=== PATIENT | male | born 1945 | race Caucasian/White ===

== ENCOUNTER 2018-08-17 22:17 | Inpatient (IN) | payer OTHER ==
--- OUTSIDE RECORDS SUMMARY | 2018-08-17 22:21 | XMS REPORT | Clinical Summary ---
:1945 Author Organization [facility] Address [address] [place] [address] Care Team Providers Name Role Phone Pcp, No Primary Care Provider Unavailable Allergies Active Allergy Reactions Severity Noted Date Comments Pollen Extracts 07/21/2018 Sneezing,runny nose Medications Medication Sig Dispensed Refills Start Date End Date Status multivit-mins Take by mouth 0 Active no.63/iron/folic (M-VIT daily. ORAL) biotin 5,000 mcg TbDL Take by mouth. 0 Active psyllium (FIBER-CAPS, Take 0.52 g by 0 Active PSYLLIUM HUSK,) 0.52 mouth daily. gram capsule sodium chloride 0.65% 1 spray by 0 Active (SODIUM CHLORIDE) 0.65 Nasal route % nasal spray nightly. loratadine (CLARITIN) Take 10 mg by 0 Active 10 mg tablet mouth as needed for Allergies. bismuth subsalicylate Take by mouth 0 Active (PEPTO-BISMOL ORAL) as needed. acetaminophen (TYLENOL) Take 500 mg by 0 Active 500 MG tablet mouth every 6 (six) hours as needed for Pain. aspirin 325 MG EC Take 1 tablet 30 tablet 08/02/2018 08/02/2019 Active tablet (325 mg total) by mouth daily. Active Problems Problem Noted Date Primary osteoarthritis of left knee 08/01/2018 Osteoarthritis of left knee, unspecified osteoarthritis type 08/01/2018 Encounters Date Type Specialty Care Team Description 08/03/2018 Telephone Anesthesiology Teresa Varela Follow-up STAR Tapia 08/01/2018 Surgery Erich Tanner MAKOPLASTY,KNEE MD Miguelangel 08/01/2018 Anesthesia Event Jodie Garza NP 08/01/2018 Hospital General Internal Erich Tanner Osteoarthritis of - Encounter Medicine MD Miguelangel left knee, 08/02/2018 unspecified osteoarthritis type (Primary Dx) 08/01/2018 Travel 07/24/2018 Anesthesia Event Pre-Admission Testing Jodie Garza NP 07/21/2018 Hospital Pre-Admission Testing Erich Tanner Encounter MD Miguelangel 07/21/2018 Orders Only General Internal Medicine after 08/16/2017 Social History Tobacco Use Types Packs/Day Years Used Date Former Smoker Smokeless Tobacco: Never Used Comments: quit 1985 Alcohol Use Drinks/Week oz/Week Comments Yes rare Sex Assigned at Date Recorded Not on file Job Start Date Occupation Industry Not on file Not on file Not on file Travel History Travel Start Travel End No recent travel history available. Last Filed Vital Signs Vital Sign Reading Time Taken Blood Pressure 155/70 08/02/2018 1:00 PM CHEMICAL PROCESS OPERATOR Pulse 67 08/02/2018 1:00 PM CHEMICAL PROCESS OPERATOR Temperature 36.6 C (97.8 F) 08/02/2018 1:00 PM CHEMICAL PROCESS OPERATOR Respiratory Rate 18 08/02/2018 1:00 PM CHEMICAL PROCESS OPERATOR Oxygen Saturation 98% 08/02/2018 1:00 PM CHEMICAL PROCESS OPERATOR Inhaled Oxygen Concentration - - Weight 78.5 kg (173 lb 1 oz) 08/01/2018 5:53 AM CHEMICAL PROCESS OPERATOR Height 170.2 cm (5' 7") 08/01/2018 5:53 AM CHEMICAL PROCESS OPERATOR Body Mass Index 27.11 08/01/2018 5:53 AM CHEMICAL PROCESS OPERATOR Plan of Treatment Not on file Implants Implanted Type Area Cut Off Sawyer Log Device Shelf Model / Identifier Expiration Serial / Date Lot Cement Bone Smplx Hv 6194-1-001 - [id number] Cement/Adi Left: MONICA: MONICA 02/08/2020 [id number] / Implanted: Qty: 2 on 08/01/2018 by Erich Tanner MD ler/Adhesi Knee ORTHOPAEDICS / ve [id number] Insrt Tib #5 9mm 5530-G-509 - [id number] Joints Left: MONICA:MONICA 5530-G-509 / Implanted: Qty: 1 on 08/01/2018 by Erich Tanner MD Knee ORTHOPAEDICS / [id number] Baseplt Triathlon Ts Sz5 5521-B-500 - [id number] Joints Left: MONICA: MONICA 06/16/2023 5521-B-[id number] / Implanted: Qty: 1 on 08/01/2018 by Erich Tanner MD Knee ORTHOPAEDICS / [id number] Comp Fem Cr Barry No.5 L 5510-F-501 - [id number] Joints Left: MONICA:MONICA 01/10/2023 5510-F-[id number] / Implanted: Qty: 1 on 08/01/2018 by Erich Tanner MD Knee ORTHOPAEDICS / [id number] Patella Tri Asymmetric 29x9mm 5551-L-299 - [id number] Joints Left: MONICA: MONICA 11/20/2022 5551-L-[id number] / Implanted: Qty: 1 on 08/01/2018 by Erich Tanner MD Knee ORTHOPAEDICS / [id number] Explanted Type Area Cut Off Sawyer Log Device Shelf Model / Identifier Expiration Serial / Date Lot Checkpoint Femoral Strl [id number] - [id number] IMPLANTS Left: MONICA:MONICA [id number] / Explanted: Qty: 1 on 08/01/2018 by Erich Tanner MD Knee [employer] / Pin Bone [id number] Strl [id number] - [id number] IMPLANTS Left: MONICA:MONICA [id number] / Explanted: Qty: 1 on 08/01/2018 Knee [employer] / Procedures Procedure Name Priority Date/Time Associated Diagnosis Comments TRANSFUSION SERVICE 08/02/2018 5:51 REPORT - SCAN PM CHEMICAL PROCESS OPERATOR HEMOGLOBIN AND Routine 08/02/2018 4:14 Results for this HEMATOCRIT AM CHEMICAL PROCESS OPERATOR procedure are in the results section. BASIC METABOLIC Routine 08/02/2018 4:14 Results for this PANEL (7) AM CHEMICAL PROCESS OPERATOR procedure are in the results section. POCT-GLUCOSE METER Routine 08/01/2018 6:17 Results for this PM CHEMICAL PROCESS OPERATOR procedure are in the results section. XR KNEE LEFT 1 OR 2 STAT 08/01/2018 11:24 Results for this VIEWS AM CHEMICAL PROCESS OPERATOR procedure are in the results section. TISSUE EXAM AP Routine 08/01/2018 9:45 Results for this AM CHEMICAL PROCESS OPERATOR procedure are in the results section. PROCEDURE W/ ATTILA 08/01/2018 7:00 Primary osteoarthritis ROBOT AM CHEMICAL PROCESS OPERATOR of left knee Case Notes Need pre cert Special Needs (ATTILA) MAKOPLASTY,KNEE 08/01/2018 7:00 AM CHEMICAL PROCESS OPERATOR Primary osteoarthritis of left knee Case Notes Need pre cert Special Needs (ATTILA) UT AN PERINEURAL CATH - NO Routine 08/01/2018 6:43 AM CHEMICAL PROCESS OPERATOR Results for this CHARGE procedure are in the results section. ANESTHESIA SPINAL BLOCK Routine 08/01/2018 6:37 AM CHEMICAL PROCESS OPERATOR ABORH, MANUAL STAT 08/01/2018 6:11 AM CHEMICAL PROCESS OPERATOR TRANSFUSION SERVICE REPORT 07/22/2018 6:04 PM CHEMICAL PROCESS OPERATOR - SCAN ECG 12-LEAD Routine 07/21/2018 3:10 PM CHEMICAL PROCESS OPERATOR Procedure Note - Interface, External Ris In - 07/21/2018 5:40 PM CHEMICAL PROCESS OPERATOR Ventricular Rate 67 BPM Atrial Rate 67 BPM P-R Interval 222 ms QRS Duration 90 ms Q-T Interval 434 ms QTC Calculation(Bazett) 458 ms P [place] 22 degrees R [place] -39 degrees T [place] -10 degrees Sinus rhythm with 1st degree A-V block Left axis deviation Abnormal ECG No previous ECGs available ECG 12-LEAD Routine 07/21/2018 3:10 PM CHEMICAL PROCESS OPERATOR TYPE AND SCREEN, AUTOMATED Routine 07/21/2018 3:03 PM CHEMICAL PROCESS OPERATOR HEMOGLOBIN Routine 07/21/2018 3:03 PM CHEMICAL PROCESS OPERATOR PLATELET COUNT Routine 07/21/2018 3:03 PM CHEMICAL PROCESS OPERATOR ELECTROLYTE PANEL Routine 07/21/2018 3:03 PM CHEMICAL PROCESS OPERATOR BUN AND CREATININE Routine 07/21/2018 3:03 PM CHEMICAL PROCESS OPERATOR GLUCOSE Routine 07/21/2018 3:03 PM CHEMICAL PROCESS OPERATOR after 08/16/2017 Results TRANSFUSION SERVICE REPORT - SCAN (08/02/2018 5:51 PM CHEMICAL PROCESS OPERATOR)Only the most recent of2 resultswithin the time period is included. Narrative Performed At Hemoglobin and hematocrit (08/02/2018 4:14 AM CHEMICAL PROCESS OPERATOR) Hemoglobin 10.6 (L) 13.7 - 17.5 GM/DL [facility] Hematocrit 31.7 (L) 40.1 - 51.0 % [facility] Specimen Blood - Arm, Right Performing Organization Address City/[facility]/Zipcode Phone Number [address] [address] [place] Basic metabolic panel (08/02/2018 4:14 AM CHEMICAL PROCESS OPERATOR) Sodium 136 136 - 145 meq/L [facility] Potassium 4.4 3.5 - 5.1 meq/L [facility] Chloride 105 98 - 107 meq/L [facility] CO2 28 22 - 29 meq/L [facility] BUN 17 7 - 21 mg/dL [facility] Creatinine 0.76 0.57 - 1.25 mg/dL [facility] Glucose 89 70 - 105 mg/dL [facility] Calcium 8.0 (L) 8.4 - 10.2 mg/dL [facility] EGFR 100Comment: ESTIMATED GFR IS mL/min/1.73 sq m [facility] NOT ACCURATE CREATININE [facility] CLEARANCE IN PREDICTING GLOMERULAR FILTRATION RATE. ESTIMATED GFR IS NOT APPLICABLE FOR DIALYSIS PATIENTS. Specimen Blood - Arm, Right Narrative Performed At Specimen slightly icteric [facility] Performing Organization Address [facility] Phone Number [address] [address] [phone] [place] POC-Glucose meter (08/01/2018 6:17 PM CHEMICAL PROCESS OPERATOR) POC-Glucose Meter 88Comment: TESTED AT 70 - 110 mg/dL [address] [address] Specimen Blood Performing Organization Address [facility]/Zipcode Phone Number [address] [address] [place] XR knee 1 or 2 views left (08/01/2018 11:24 AM CHEMICAL PROCESS OPERATOR) Narrative Performed At FINAL REPORT [facility] Post operative exam: Clinical history: Postop total knee replacement Comparison: Two Two image(s) was(were) submitted for interpretation. Report: Imaging was performed in the postanesthesia care unit. Laterality was documented on this exam with a lead marker. Surgical hardware is seen overlying the distal left femur and proximal left tibia. This information was not discussed with the OR personnel at the time of dictation. Signed: Nelly Suazo MD Report Verified Date/Time:08/01/2018 11:42:28 Reading Location: [facility] Radiology Reading Room Procedure Note Interface, External Ris In - 08/01/2018 11:44 AM CHEMICAL PROCESS OPERATOR FINAL REPORT Post operative exam: Clinical history: Postop total knee replacement Comparison: Two Two image(s) was(were) submitted for interpretation. Report: Imaging was performed in the postanesthesia care unit. Laterality was documented on this exam with a lead marker. Surgical hardware is seen overlying the distal left femur and proximal left tibia. This information was not discussed with the OR personnel at the time of dictation. Signed: Nelly Suazo MD Report Verified Date/Time: 08/01/2018 11:42:28 Reading Location: [facility] Radiology Reading Room Performing Organization Address City/State/Zipcode Phone Number GE RIS Tissue Exam (08/01/2018 9:45 AM CHEMICAL PROCESS OPERATOR) Case Report Surgical Pathology Report Case: [id number] [facility] Authorizing Provider:Erich Tanner MDCollected: 08/01/2018 0945 [facility] Ordering Location: [facility] PERIOPERATIVE Received: 08/01/2018 0957 SERVICES Pathologist: Selina Correa MD Specimen:Condyle,Left Knee DIAGNOSIS BONE, LEFT KNEE CONDYLE, ARTHROPLASTY [facility] - CONSISTENT WITH OSTEOARTHRITIS [facility] Signing Pathologist Direct Phone Line: [phone] CPT Code(s) 30987, 9[address]23 [facility] CLINICAL HISTORY Primary osteoarthritis of [facility] left knee [facility] SPECIMEN SOURCE Left knee condyle [facility] GROSS DESCRIPTION The specimen is received in a fluidless container labeled with the patient's information and labeled "left knee condyle" and consists of multiple fragments of nicole knee bone and soft tissue measuring 9 x [facility] 7 x 2 cm in aggregate. The bone fragments have distinct osteophyte formation with focal areas of eburnation. [facility] Section code: A1, A2, bone submitted for decalcification; A3, soft tissue and bone submitted for decalcification. CG/ew MICROSCOPIC DESCRIPTION Performed. [facility] Specimen Tissue - Condyle,Left Knee Performing Organization Address City/State/Zipcode Phone Number [facility] [address] [place] [address] [phone] CENTER ANESTHESIA PERIPHERAL BLOCK (08/01/2018 6:43 AM CHEMICAL PROCESS OPERATOR) Narrative Performed At Rajendra Vega MD 08/01/20186:44 AM Peripheral Block Patient location during procedure: pre-procedure Start time: 08/01/2018 6:38 AM End time: 08/01/2018 6:42 AM Preanesthetic Checklist Completed: patient identified, pre-op evaluation, timeout performed, IV checked, risks and benefits discussed, monitors and equipment checked, anesthesia consent given, prep site dry prior to draping and maximum sterile barriers were used: cap, mask, sterile gown, sterile gloves, and large sterile sheet Staffing Anesthesiologist: Rajendra Vega MD Resident/RECREATION THERAPIST: Denise Rodriguez MD Prep Prep: chlorhexidine Procedures: sterile gloves, surgical mask, surgical hat, sterile technique and prep and sterile drape applied Peripheral Nerve Block Patient position: supine Patient monitoring: EKG, HR, BP and SpO2 Laterality: left Block type: adductor canal Injection technique: catheter ultrasound guided - in plane, prescan was completed prior to procedure and needle tip was visualized throughout the entire procedure Block Dose: ropivicaine and catheter Infiltration strength: 0.5 % Dose: 25 mL Needle Needle type: xochilt nazario. Needle gauge: 18 G Needle length: 75 mm. Needle Localization:US guided Catheter type: closed end Catheter size: 21g. Hydrodissection? yesCatheter tunneled Dressing: Occlusive dressing applied in sterile fashion and Dermabond applied at the catheter insertion site Assessment Injection assessment: incremental injection and negative aspiration for heme LOC: Sedated with meaningful contact supplemental oxygen used.no evidence of intravascular injection and no heart rate changeno paresthesia patient had no immediate complications and patient tolerated the procedure well Additional Notes Patient tolerated procedure well. No complications. Dr. Vega present for entire procedure. Procedure Note Rajendra Vega MD - 08/01/2018 6:43 AM CHEMICAL PROCESS OPERATOR Peripheral Block Patient location during procedure: pre-procedure Start time: 08/01/2018 6:38 AM End time: 08/01/2018 6:42 AM Preanesthetic Checklist Completed: patient identified, pre-op evaluation, timeout performed, IV checked , risks and benefits discussed, monitors and equipment checked, anesthesia consent given, prep site dry prior to draping and maximum sterile barriers were used: cap, mask, sterile gown, sterile gloves, and large sterile sheet Staffing Anesthesiologist: Rajendra Vega MD Resident/RECREATION THERAPIST: Denise Rodriguez MD Prep Prep: chlorhexidine Procedures: sterile gloves, surgical mask, surgical hat, sterile technique and prep and sterile drape applied Peripheral Nerve Block Patient position: supine Patient monitoring: EKG, HR, BP and SpO2 Laterality: left Block type: adductor canal Injection technique: catheter ultrasound guided - in plane, prescan was completed prior to procedure and needle tip was visualized throughout the entire procedure Block Dose: ropivicaine and catheter Infiltration strength: 0.5 % Dose: 25 mL Needle Needle type: pajunk e cath. Needle gauge: 18 G Needle length: 75 mm. Needle Localization: US guided Catheter type: closed end Catheter size: 21g. Hydrodissection? yesCatheter tunneled Dressing: Occlusive dressing applied in sterile fashion and Dermabond applied at the catheter insertion site Assessment Injection assessment: incremental injection and negative aspiration for heme LOC: Sedated with meaningful contact supplemental oxygen used.no evidence of intravascular injection and no heart rate changeno paresthesia patient had no immediate complications and patient tolerated the procedure well Additional Notes Patient tolerated procedure well. No complications. Dr. Vega present for entire procedure. ANESTHESIA SPINAL BLOCK (08/01/2018 6:37 AM CHEMICAL PROCESS OPERATOR) Narrative Performed At Rajendra Vega MD 08/01/20186:39 AM Spinal Block Patient location during procedure: pre-procedure Start time: 08/01/2018 6:32 AM End time: 08/01/2018 6:36 AM Procedure Indication: procedure for pain, at surgeon's request and post-op pain management Staffing Anesthesiologist: Rajendra Vega MD Performed: personally Preanesthetic Checklist Completed: patient identified, pre-op evaluation, timeout performed, IV checked, risks and benefits discussed, monitors and equipment checked, anesthesia consent given, prep site dry prior to draping and maximum sterile barriers were used: cap, mask, sterile gown, sterile gloves, and large sterile sheet Prep Prep: Betadine Procedures: sterile gloves, surgical mask, surgical hat, sterile technique and prep and sterile drape applied Spinal Block Patient position: sitting Patient monitoring: EKG, HR, BP and SpO2 Approach: midline Pictures are available Level:L3-4 Injection technique: single-shot Needle Needle type: bernie. Needle gauge: 25 G Needle Length: 9 cm Insertion Depth: 4 cm Used introducer Assessment Sensory level: T10 Events: cerebrospinal fluid patient tolerated the procedure well, patient had no immediate complications and patient had adequate level of anesthesia and negative Allis clamp test Additional Notes Patient tolerated well.No pain on injection or throughout procedure. Procedure Note Rajendra Vega MD - 08/01/2018 6:37 AM CHEMICAL PROCESS OPERATOR Spinal Block Patient location during procedure: pre-procedure Start time: 08/01/2018 6:32 AM End time: 08/01/2018 6:36 AM Procedure Indication: procedure for pain, at surgeon's request and post-op pain management Staffing Anesthesiologist: Rajendra Vega MD Performed: personally Preanesthetic Checklist Completed: patient identified, pre-op evaluation, timeout performed, IV checked , risks and benefits discussed, monitors and equipment checked, anesthesia consent given, prep site dry prior to draping and maximum sterile barriers were used: cap, mask, sterile gown, sterile gloves, and large sterile sheet Prep Prep: Betadine Procedures: sterile gloves, surgical mask, surgical hat, sterile technique and prep and sterile drape applied Spinal Block Patient position: sitting Patient monitoring: EKG, HR, BP and SpO2 Approach: midline Pictures are available Level: L3-4 Injection technique: single-shot Needle Needle type: bernie. Needle gauge: 25 G Needle Length: 9 cm Insertion Depth: 4 cm Used introducer Assessment Sensory level: T10 Events: cerebrospinal fluid patient tolerated the procedure well, patient had no immediate complications and patient had adequate level of anesthesia and negative Allis clamp test Additional Notes Patient tolerated well. No pain on injection or throughout procedure. ABORH, manual (08/01/2018 6:11 AM CHEMICAL PROCESS OPERATOR) ABO Grouping O [facility] Rh Factor POS [facility] Specimen Blood Performing Organization Address City/[facility]code Phone Number [address] [address] [phone] ECG 12 lead (07/21/2018 3:10 PM CHEMICAL PROCESS OPERATOR) Narrative Performed At Ventricular Rate 67 BPM GE MUSE Atrial Rate 67 BPM P-R Interval 222 ms QRS Duration 90 ms Q-T Interval 434 ms QTC Calculation(Bazett) 458 ms P [place] 22 degrees R [place] -39 degrees T [place] -10 degrees Sinus rhythm with 1st degree A-V block Left axis deviation Abnormal ECG No previous ECGs available Confirmed by Kendall ISAACS, SRIRAM ([id number]) on 07/22/2018 12:15:54 PM Procedure Note Interface, External Ris In - 07/22/2018 12:16 PM CHEMICAL PROCESS OPERATOR Ventricular Rate 67 BPM Atrial Rate 67 BPM P-R Interval 222 ms QRS Duration 90 ms Q-T Interval 434 ms QTC Calculation(Bazett) 458 ms P [place] 22 degrees R [place] -39 degrees T [place] -10 degrees Sinus rhythm with 1st degree A-V block Left axis deviation Abnormal ECG No previous ECGs available Confirmed by Kendall ISAACS BASANT ([id number]) on 07/22/2018 12:15:54 PM Performing Organization Address City/[facility] Phone Number GE MUSE Type and screen, automated (07/21/2018 3:03 PM CHEMICAL PROCESS OPERATOR) ABO/RH AUTOMATED (BEAKER) O POSITIVE [facility] Ab Scrn NEGATIVE [facility] Specimen Blood Performing Organization Address City/[facility]/Zipcode Phone Number [address] [address] BUN and Creatinine (07/21/2018 3:03 PM CHEMICAL PROCESS OPERATOR) BUN 15 7 - 21 mg/dL [facility] Creatinine 0.71Comment: Specimen 0.57 - 1.25 mg/dL [facility] slightly hemolyzed [facility] EGFR 108Comment: ESTIMATED GFR IS mL/min/1.73 sq m [facility] NOT ACCURATE CREATININE [facility] CLEARANCE IN PREDICTING GLOMERULAR FILTRATION RATE. ESTIMATED GFR IS NOT APPLICABLE FOR DIALYSIS PATIENTS. Specimen Blood Performing Organization Address City/[facility] Phone Number [address] [address] [phone] CENTER Platelet count (07/21/2018 3:03 PM CHEMICAL PROCESS OPERATOR) Platelets 150 150 - 450 K/CU MM [facility] Specimen Blood Performing Organization Address [facility] Phone Number [address] [address] [phone] CENTER Hemoglobin (07/21/2018 3:03 PM CHEMICAL PROCESS OPERATOR) Hemoglobin 12.1 (L) 13.7 - 17.5 GM/DL [facility] Specimen Blood Performing Organization Address City/[facility] Phone Number [address] [address] CENTER Glucose (07/21/2018 3:03 PM CHEMICAL PROCESS OPERATOR) Glucose 117 (H) 70 - 105 mg/dL [facility] Specimen Blood Performing Organization Address [facility] Phone Number [address] [address] CENTER Electrolytes (07/21/2018 3:03 PM CHEMICAL PROCESS OPERATOR) Sodium 139 136 - 145 meq/L [facility] Potassium 4.2Comment: Specimen slightly 3.5 - 5.1 meq/L [facility] Chloride 107 98 - 107 meq/L [facility] CO2 26 22 - 29 meq/L [facility] Specimen Blood Performing Organization Address City/[facility]/Zipcode Phone Number [facility] MED[facility] [address] [place] [address] CENTER after 08/16/2017 Insurance Payer Benefit Plan / Group Subscriber ID Type Phone Address [employer] - MEDICARE MGD [employer] MEDICARE ADV xxxxxxxxx Maps Contracted CARE Advance Directives Patient has advance care planning documents, and code status on file. For more information, please contact:[place] [id number] [place], [place] [phone] Code Status Date Activated Date Inactivated Comments Full Code 08/01/2018 12:25 PM This code status was determined by: Patient Full Code 08/01/2018 5:03 AM 08/01/2018 12:25 PM This code status was determined by: Patient
--- OUTSIDE RECORDS SUMMARY | 2018-08-17 22:21 | XMS REPORT ---
:1945 Author Organization [facility] Address [address] [place] [address] [address]. [address] [place] [address] Care Team Providers Name Role Phone EDUARDA TANNER Unavailable Unavailable Problems This patient has no known problems. Allergies, Adverse Reactions, Alerts This patient has no known allergies or adverse reactions. Medications This patient has no known medications. Results Test Description Test Time Test Comments Text Results Atomic Results Result Comments TISSUE EXAM 2018-08-04 16:07:00 Surgical Pathology Report Case: [id number] Authorizing Provider: Eduarda Tanner MD Collected: 08/01/2018 0945 Ordering Location: [facility] PERIOPERATIVE Received: 08/01/2018 0957 SERVICES Pathologist: Selina Correa MD Specimen: Condyle,Left Knee BONE, LEFT KNEE CONDYLE, ARTHROPLASTY - CONSISTENT WITH OSTEOARTHRITIS Signing Pathologist Direct Phone Line: [phone] signed by Selina Correa MD on 08/04/2018 at 4:07 [id number], [id number] osteoarthritis of left knee Left knee condyle The specimen is received in a fluidless container labeled with the patient's information and labeled "left knee condyle" and consists of multiple fragments of nicole knee bone and soft tissue measuring 9 x 7 x 2 cm in aggregate. The bone fragments have distinct osteophyte formation with focal areas of eburnation.Section code: A1, A2, bone submitted for decalcification; A3, soft tissue and bone submitted for decalcification. CG/ew Performed. BASIC METABOLIC PANEL 2018-08-02 05:39:00 Test Item Value Reference Range Comments SODIUM (BEAKER) (test 136 meq/L 136-145 dcut=424) POTASSIUM (BEAKER) (test 4.4 meq/L 3.5-5.1 fphf=953) CHLORIDE (BEAKER) (test 105 meq/L 98-107 aioo=466) CO2 (BEAKER) (test 28 meq/L 22-29 suab=012) BLOOD UREA NITROGEN 17 mg/dL 7-21 (BEAKER) (test ocsd=759) CREATININE (BEAKER) (test 0.76 mg/dL 0.57-1.25 nsfp=478) GLUCOSE RANDOM (BEAKER) 89 mg/dL 70-105 (test tbpx=093) CALCIUM (BEAKER) (test 8.0 mg/dL 8.4-10.2 jgpj=529) EGFR (BEAKER) (test 100 mL/min/1.73 sq m ESTIMATED GFR IS NOT ietj=2072) ACCURATE CREATININE CLEARANCE IN PREDICTING GLOMERULAR FILTRATION RATE. ESTIMATED GFR IS NOT APPLICABLE FOR DIALYSIS PATIENTS. Specimen slightly ictericHEMOGLOBIN AND [id number] 05:15:00 Test Item Value Reference Range Comments HEMOGLOBIN (BEAKER) (test hyef=383) 10.6 GM/DL 13.7-17.5 HEMATOCRIT (BEAKER) (test gohk=252) 31.7 % 40.1-51.0 POCT-GLUCOSE [id number] 18:24:00 Test Item Value Reference Range Comments POC-GLUCOSE METER (BEAKER) 88 mg/dL 70-[address] [facility] [address] [facility] (test lrfz=6098) [facility] [address] RAD, KNEE, 1 OR 2 VIEWS, [id number] 11:42:00Of operative side while in recovery room.Reason for exam:->post-op TKA, to be done in PACUShould this be performed at the bedside?->YesFINAL REPORT Post operative exam: Clinical history: Postop total knee replacementComparison: Two Two image(s) was(were) submitted for interpretation. Report:Imaging was performedin the postanesthesia care unit. Laterality was documented on this exam with a lead marker. Surgical hardware is seen overlying the distal left femur and proximal left tibia. This information was not discussed with the OR personnel at the time of dictation. Signed: Marjorie Suazo Verified Date/ Time: 08/01/2018 11:42:28 Reading Location: [facility] [address] Radiology Reading Room [id number] 16:37:00 Test Item Value Reference Range Comments SODIUM (BEAKER) (test canz=223) 139 meq/L 136-145 POTASSIUM (BEAKER) (test 4.2 meq/L 3.5-5.1 Specimen slightly hemolyzed qvrf=506) CHLORIDE (BEAKER) (test 107 meq/L 98-107 ilwq=384) CO2 (BEAKER) (test ohme=599) 26 meq/L 22-29 [id number] 16:37:00 Test Item Value Reference Range Comments GLUCOSE RANDOM (BEAKER) (test wawg=731) 117 mg/dL 70-105 BUN AND [id number] 16:37:00 Test Item Value Reference Range Comments BLOOD UREA NITROGEN 15 mg/dL 7-21 (BEAKER) (test kiaw=747) CREATININE (BEAKER) (test 0.71 mg/dL 0.57-1.25 Specimen slightly ucmn=575) hemolyzed EGFR (BEAKER) (test 108 mL/min/1.73 sq m ESTIMATED GFR IS NOT ablo=8995) ACCURATE CREATININE CLEARANCE IN PREDICTING GLOMERULAR FILTRATION RATE. ESTIMATED GFR IS NOT APPLICABLE FOR DIALYSIS PATIENTS. [id number] 16:07:00 Test Item Value Reference Range Comments HEMOGLOBIN (BEAKER) (test zgrk=441) 12.1 GM/DL 13.7-17.5 PLATELET [id number] 16:07:00 Test Item Value Reference Range Comments PLATELET COUNT (BEAKER) (test wbpi=904) 150 K/CU MM 150-450
--- NOTE | 2018-08-17 23:14 | ER ---
Nurse's Notes [facility] Name: Marcin Luu Age: 73 yrs Sex: Male : 1945 Arrival Date: 08/17/2018 Time: 22:26 Bed 4 Private MD: Carli Oropeza F Diagnosis: Abdominal tenderness;Gastrointestinal hemorrhage, unspecified-upper;Anemia, unspecified;Hematemesis;Elevated white blood cell count;Unspecified cirrhosis of liver-MCLAUGHLIN;Hyperkalemia Presentation: 08/17 22:44 Presenting complaint: Patient states: he has had black stools x approx [address] gonzales Elliott today for fatigue and had blood work done but no results yet pt had recent knee replacement in July. Transition of care: patient was not received from another setting of care. Onset of symptoms was August 06, 2018. Risk Assessment: Do you want to hurt yourself or someone else? Patient reports no desire to harm self or others. Initial Sepsis Screen: Does the patient meet any 2 criteria? No. Patient's initial sepsis screen is negative. Does the patient have a suspected source of infection? No. Patient's initial sepsis screen is negative. Care prior to arrival: None. 22:44 Method Of Arrival: Wheelchair bb 22:44 Acuity: SHERWIN 2 bb Historical: - Allergies: 22:48 NKA; bb - Home Meds: 22:48 None [Active]; bb - PMHx: 22:48 LYMPHOMA; esophageal cancer; skin cancer; prostate cancer; bb - PSHx: 22:48 Appendectomy; bb - Immunization history:: Adult Immunizations up to date, Flu vaccine is up to date. - Social history:: Smoking status: Patient/guardian denies using tobacco, Patient uses alcohol, but reports only rare drinking. - Ebola Screening: : No symptoms or risks identified at this time. Screenin/08 00:38 Abuse screen: Denies threats or abuse. Nutritional screening: No deficits noted. jd3 Tuberculosis screening: No symptoms or risk factors identified. Fall Risk IV access (20 points). Ambulatory Aid- Crutches/Cane/Walker (15 pts). Gait- Weak (10 pts.). Mental Status- Oriented to own ability (0 pts). Total Rios Fall Scale indicates High Risk Score (45 or more points). Fall prevention measures have been instituted. Side Rails Up X 2 Placed Close to Nursing Station Frequent Obs/Assessments Occuring Family Present and informed to notify staff if the need to leave the bedside. Assessment: 08/17 23:17 General: Appears in no apparent distress. uncomfortable, Behavior is calm, cooperative, jd3 appropriate for age. Pain: Complains of pain in abdomen Quality of pain is described as aching. Neuro: Level of Consciousness is awake, alert, obeys commands, Oriented to person, place, time, situation. Cardiovascular: Capillary refill < 3 seconds Patient's skin is warm and dry. Respiratory: Airway is patent Respiratory effort is even, unlabored, Respiratory pattern is regular, symmetrical. GI: Abdomen is round Abd is soft and non tender X 4 quads. Reports lower abdominal pain. : No signs and/or symptoms were reported regarding the genitourinary system. EENT: No signs and/or symptoms were reported regarding the EENT system. Derm: Skin is intact, Skin is dry, Skin is normal, Skin temperature is warm. Musculoskeletal: Circulation, motion, and sensation intact. 08/18 00:35 Reassessment: Patient appears in no apparent distress at this time. No changes from jd3 previously documented assessment. Patient and/or family updated on plan of care and expected duration. Pain level reassessed. Patient is alert, oriented x 3, equal unlabored respirations, skin warm/dry/pink. 01:25 Reassessment: blood transfusion started, see blood transfusion flow sheet. jd3 01:30 Reassessment: Patient appears in no apparent distress at this time. No changes from jd3 previously documented assessment. Patient and/or family updated on plan of care and expected duration. Pain level reassessed. Patient is alert, oriented x 3, equal unlabored respirations, skin warm/dry/pink. 02:19 Reassessment: Patient appears in no apparent distress at this time. No changes from jd3 previously documented assessment. Patient and/or family updated on plan of care and expected duration. Pain level reassessed. Patient is alert, oriented x 3, equal unlabored respirations, skin warm/dry/pink. Vital Signs: 08/17 22:48 BP 92 / 55; Pulse 108; Resp 16 S; Temp 98.4(O); Pulse Ox 99% on R/A; Weight 79.38 kg bb (R); Height 5 ft. 7 in. (170.18 cm) (R); Pain 5/10; 08 00:34 BP 100 / 49; Pulse 96; Resp 17 S; Pulse Ox 99% on R/A; jd3 01:25 BP 95 / 55; Pulse 104; Resp 20 S; Temp 98.4(O); Pulse Ox 100% on R/A; jd3 02:21 BP 105 / 58; Pulse 95; Resp 14 S; Temp 99.3(O); Pulse Ox 97% on R/A; jd3 08/17 22:48 Body Mass Index 27.41 (79.38 kg, 170.18 cm) bb ED Course: 08/17 22:26 Patient arrived in ED. am2 22:26 Carli Oropeza MD is Private Physician. am2 22:46 Triage completed. bb 22:48 Arm band placed on Patient placed in an exam room, on a stretcher, on pulse oximetry. bb Family accompanied patient. 22:56 Phil Perdomo MD is Attending Physician. rolando 23:13 Carli Oropeza MD is Hospitalizing Provider. rolando 23:15 No provider procedures requiring assistance completed. Inserted saline lock: 20 gauge jd3 in left antecubital area, using aseptic technique. Blood collected. 23:17 Robert Shankar RN is Primary Nurse. j 23:24 X-ray completed. Portable x-ray completed in exam room. Patient tolerated procedure kw well. 23:26 XRAY Chest (1 view) In Process Unspecified. EDMS 08/18 00:38 Patient has correct armband on for positive identification. Placed in gown. Bed in low jd3 position. Call light in reach. Side rails up X2. Adult w/ patient. 01:20 Accessed Port-a-Cath. using accessed w/ # 20 Singh needle, ,sterile technique, per [facility] protocol. Clean \T\ dry. Dressing intact. Good blood return. Flushes easily. 02:26 Patient admitted, IV remains in place. jd3 Administered Medications: 00:26 Drug: NS 0.9% 500 ml Route: IV; Rate: bolus; Site: left antecubital; jd3 00:59 Follow up: Response: No adverse reaction; IV Status: Completed infusion jd3 00:26 Drug: NS 0.9% 1000 ml Route: IV; Rate: 125 ml/hr; Site: left antecubital; jd3 03:05 Follow up: Response: No adverse reaction; IV Status: Infusion continued upon admission jd3 00:26 Drug: ProTONIX 80 mg Route: IVP; Site: left antecubital; jd3 00:59 Follow up: Response: No adverse reaction jd3 00:26 Drug: Zofran 4 mg Route: IVP; Site: left antecubital; jd3 00:59 Follow up: Response: No adverse reaction jd3 00:27 Drug: ProTONIX 8 mg/hr Route: IV; Rate: 25 ml/hr; Site: left antecubital; jd3 02:50 Follow up: Response: No adverse reaction; IV Status: Infusion continued upon admission jd3 00:58 Drug: Benadryl 12.5 mg Route: IVP; Site: left antecubital; jd3 01:50 Follow up: Response: No adverse reaction jd3 00:58 Drug: Tylenol 650 mg Route: PO; jd3 01:50 Follow up: Response: No adverse reaction jd3 02:15 Drug: Albuterol 2.5 mg Route: Inhalation; jd3 02:50 Follow up: Response: No adverse reaction jd3 Outcome: 08/17 23:14 Decision to Hospitalize by Provider. rolando 08/18 02:50 Admitted to ICU accompanied by nurse, accompanied by mary, via stretcher, room 08, on jd3 monitor, with chart, Report called to Casi GRAVES Condition: stable Instructed on the need for admit, Demonstrated understanding of instructions. 02:54 Patient left the ED. ea Signatures: Dispatcher [employer] EDSD Phil Perdomo MD MD cha Ballard, Brenda, RN RN Taisha Smith Amanda am2 Marcelle Sims RN RN ea Davies, Jonathon, RN RN jd3 Corrections: (The following items were deleted from the chart) 02:25 08/17 23:17 GI: Abdomen is round Abd is soft and non tender X 4 quads. Reports lower jd3 abdominal pain, jd3 08/18 02:26 02 23:17 GI: Abdomen is round Bowel sounds present X 4 quads. Abd is soft and non jd3 tender X 4 quads. Reports lower abdominal pain, jd3
--- NOTE | 2018-08-17 23:15 | EDPHYS ---
Physician Documentation [facility] Name: Marcin Luu Age: 73 yrs Sex: Male : 1945 Arrival Date: 08/17/2018 Time: 22:26 Bed 4 Private MD: Carli Oropeza F ED Physician Phil Perdomo HPI: 08/17 23:08 This 73 yrs old Male presents to ER via Wheelchair with complaints of rolando Abdominal Pain, Black/Tarry Stools, Vomiting - blood. 23:08 The patient presents to the emergency department with nausea, vomiting, that is rolando intermittent. Onset: The symptoms/episode began/occurred today. Possible causes: upper gi bleed. The symptoms are aggravated by nothing. The symptoms are alleviated by nothing. Associated signs and symptoms: Pertinent positives: belching, GI bleeding, nausea, vomiting. Severity of symptoms: At their worst the symptoms were mild moderate in the emergency department the symptoms are unchanged. The patient has not experienced similar symptoms in the past. Historical: - Allergies: 22:48 NKA; bb - Home Meds: 22:48 None [Active]; bb - PMHx: 22:48 LYMPHOMA; esophageal cancer; skin cancer; prostate cancer; bb - PSHx: 22:48 Appendectomy; bb - Immunization history:: Adult Immunizations up to date, Flu vaccine is up to date. - Social history:: Smoking status: Patient/guardian denies using tobacco, Patient uses alcohol, but reports only rare drinking. - Ebola Screening: : No symptoms or risks identified at this time. ROS: 23:10 Constitutional: Negative for fever, chills, and weight loss, Eyes: Negative for injury, rolando pain, redness, and discharge, ENT: Negative for injury, pain, and discharge, Neck: Negative for injury, pain, and swelling, Respiratory: Negative for shortness of breath, cough, wheezing, and pleuritic chest pain, Abdomen/GI: Negative for abdominal pain, nausea, vomiting, diarrhea, and constipation, Back: Negative for injury and pain, : Negative for injury, bleeding, discharge, and swelling, MS/Extremity: Negative for injury and deformity, Skin: Negative for injury, rash, and discoloration, Neuro: Negative for headache, weakness, numbness, tingling, and seizure. 23:10 Cardiovascular: Positive for palpitations. 23:10 Abdomen/GI: Positive for nausea and vomiting, abdominal distension, hematemesis, black/tarry stool. Exam: 23:10 Constitutional: This is a well developed, well nourished patient who is awake, alert, rolando and in no acute distress. Head/Face: Normocephalic, atraumatic. Eyes: Pupils equal round and reactive to light, extra-ocular motions intact. Lids and lashes normal. Conjunctiva and sclera are non-icteric and not injected. Cornea within normal limits. Periorbital areas with no swelling, redness, or edema. ENT: Nares patent. No nasal discharge, no septal abnormalities noted. Tympanic membranes are normal and external auditory canals are clear. Oropharynx with no redness, swelling, or masses, exudates, or evidence of obstruction, uvula midline. Mucous membranes moist. Neck: Trachea midline, no thyromegaly or masses palpated, and no cervical lymphadenopathy. Supple, full range of motion without nuchal rigidity, or vertebral point tenderness. No Meningismus. Chest/axilla: Normal chest wall appearance and motion. Nontender with no deformity. No lesions are appreciated. Respiratory: Lungs have equal breath sounds bilaterally, clear to auscultation and percussion. No rales, rhonchi or wheezes noted. No increased work of breathing, no retractions or nasal flaring. Abdomen/GI: Soft, non-tender, with normal bowel sounds. No distension or tympany. No guarding or rebound. No evidence of tenderness throughout. Back: No spinal tenderness. No costovertebral tenderness. Full range of motion. Male : Normal genitalia with no discharge or lesions. Skin: Warm, dry with normal turgor. Normal color with no rashes, no lesions, and no evidence of cellulitis. 23:10 Cardiovascular: Rate: tachycardic, Rhythm: regular, Pulses: Pulses are 4+ in bilateral radial, brachial, femoral, popliteal, posterior tibial and and dorsalis pedis arteries.. Heart sounds: normal, Edema: is not appreciated, JVD: is not appreciated. Vital Signs: 22:48 BP 92 / 55; Pulse 108; Resp 16 S; Temp 98.4(O); Pulse Ox 99% on R/A; Weight 79.38 kg bb (R); Height 5 ft. 7 in. (170.18 cm) (R); Pain 5/10; 08/18 00:34 BP 100 / 49; Pulse 96; Resp 17 S; Pulse Ox 99% on R/A; jd3 01:25 BP 95 / 55; Pulse 104; Resp 20 S; Temp 98.4(O); Pulse Ox 100% on R/A; jd3 02:21 BP 105 / 58; Pulse 95; Resp 14 S; Temp 99.3(O); Pulse Ox 97% on R/A; jd3 08/17 22:48 Body Mass Index 27.41 (79.38 kg, 170.18 cm) bb MDM: 08/17 22:56 Patient medically screened. rolando 23:10 Data reviewed: vital signs, nurses notes, lab test result(s), EKG, radiologic studies, rolando plain films. 08/17 23:08 Order name: Basic Metabolic Panel; Complete Time: 00:55 [facility] 08/17 23:08 Order name: CBC with Diff; Complete Time: 00:55 [facility] 08/17 23:08 Order name: LFT's; Complete Time: 00:55 [facility] 08/17 23:08 Order name: Magnesium; Complete Time: 00:55 [facility] 08/17 23:08 Order name: NT PRO-BNP; Complete Time: 00:55 [facility] 08/17 23:08 Order name: PT-INR; Complete Time: 00:55 [facility] 08/17 23:08 Order name: Troponin (emerg Dept Use Only); Complete Time: 00:55 [facility] 08/17 23:08 Order name: XRAY Chest (1 view) [facility] 08/17 23:08 Order name: Lipase; Complete Time: 00:55 [facility] 08/17 23:08 Order name: Type And Screen [facility] 08/18 00:58 Order name: CT Abd/Pelvis - Without Cont [facility] 08/17 23:08 Order name: EKG; Complete Time: 23:09 [facility] 08/17 23:08 Order name: Cardiac monitoring; Complete Time: 00:27 [facility] 08/17 23:08 Order name: EKG - Nurse/Tech; Complete Time: 00:27 [facility] 08/17 23:08 Order name: IV Saline Lock; Complete Time: 00:27 [facility] 08/17 23:08 Order name: Labs collected and sent; Complete Time: 00:27 [facility] 08/17 23:08 Order name: O2 Per Protocol; Complete Time: 00:27 [facility] 08/17 23:08 Order name: O2 Sat Monitoring; Complete Time: 00: [facility] 08/17 23:08 Order name: Transfuse; Complete Time: 03:06 [facility] 08/17 23:08 Order name: IV Saline Lock - Large Bore; Complete Time: 00: [facility] 08/17 23:18 Order name: CONS Physician Consult EDMS Administered Medications: 08/18 00:26 Drug: NS 0.9% 500 ml Route: IV; Rate: bolus; Site: left antecubital; jd3 00:59 Follow up: Response: No adverse reaction; IV Status: Completed infusion jd3 00:26 Drug: NS 0.9% 1000 ml Route: IV; Rate: 125 ml/hr; Site: left antecubital; jd3 03:05 Follow up: Response: No adverse reaction; IV Status: Infusion continued upon admission jd3 00:26 Drug: ProTONIX 80 mg Route: IVP; Site: left antecubital; jd3 00:59 Follow up: Response: No adverse reaction jd3 00:26 Drug: Zofran 4 mg Route: IVP; Site: left antecubital; jd3 00:59 Follow up: Response: No adverse reaction jd3 00:27 Drug: ProTONIX 8 mg/hr Route: IV; Rate: 25 ml/hr; Site: left antecubital; jd3 02:50 Follow up: Response: No adverse reaction; IV Status: Infusion continued upon admission jd3 00:58 Drug: Benadryl 12.5 mg Route: IVP; Site: left antecubital; jd3 01:50 Follow up: Response: No adverse reaction jd3 00:58 Drug: Tylenol 650 mg Route: PO; jd3 01:50 Follow up: Response: No adverse reaction jd3 02:15 Drug: Albuterol 2.5 mg Route: Inhalation; jd3 02:50 Follow up: Response: No adverse reaction jd3 Disposition: 08/17/18 23:14 Hospitalization ordered by Carli Oropeza for Inpatient Admission. Preliminary diagnosis are Abdominal tenderness, Gastrointestinal hemorrhage, unspecified - upper, Anemia, unspecified, Hematemesis, Elevated white blood cell count, Unspecified cirrhosis of liver - MCLAUGHLIN, Hyperkalemia. - Bed requested for Intensive Care Unit. - Status is Inpatient Admission. ea - Condition is Stable. - Problem is new. - Symptoms have improved. UTI on Admission? No Signatures: Dispatcher [employer] EDViviane Kaye RN Phil Quintanilla MD MD cha Ballard, Brenda, RN RN bb Antunez, Elena, RN RN ea Davies, Jonathon, RN RN jd3 Corrections: (The following items were deleted from the chart) 00:05 08/17 23:14 Hospitalization Ordered by Carli Oropeza MD for Inpatient Admission. xochitl Preliminary diagnosis is Abdominal tenderness; Gastrointestinal hemorrhage, unspecified - upper; Anemia, unspecified; Hematemesis. Bed requested for Intensive Care Unit. Status is Inpatient Admission. Condition is Stable. Problem is new. Symptoms have improved. UTI on Admission? No. rolando 08/18 00:59 00:05 08/17/2018 23:14 Hospitalization Ordered by Carli Oropeza MD for Inpatient rolando Admission. Preliminary diagnosis is Abdominal tenderness; Gastrointestinal hemorrhage, unspecified - upper; Anemia, unspecified; Hematemesis. Bed requested for Intensive Care Unit. Status is Inpatient Admission. Condition is Stable. Problem is new. Symptoms have improved. UTI on Admission? No. xochitl 01:03 00:59 08/17/2018 23:14 Hospitalization Ordered by Carli Oropeza MD for Inpatient rolando Admission. Preliminary diagnosis is Abdominal tenderness; Gastrointestinal hemorrhage, unspecified - upper; Anemia, unspecified; Hematemesis; Elevated white blood cell count; Unspecified cirrhosis of liver - MCLAUGHLIN. Bed requested for Intensive Care Unit. Status is Inpatient Admission. Condition is Stable. Problem is new. Symptoms have improved. UTI on Admission? No. rolando 02:54 01:03 08/17/2018 23:14 Hospitalization Ordered by Carli Oropeza MD for Inpatient ea Admission. Preliminary diagnosis is Abdominal tenderness; Gastrointestinal hemorrhage, unspecified - upper; Anemia, unspecified; Hematemesis; Elevated white blood cell count; Unspecified cirrhosis of liver - MCLAUGHLIN; Hyperkalemia. Bed requested for Intensive Care Unit. Status is Inpatient Admission. Condition is Stable. Problem is new. Symptoms have improved. UTI on Admission? No. roalndo
[2018-08-18 00:05] LABS: Absolute Lymphocytes (CBC) 1.3 K/uL (0.7-4.9); Absolute Monocytes 1.4 K/uL (0.1-1.3); Absolute Neutrophil 11.4 K/uL (1.8-8.0); Eosinophils % 0.1 % (0-4.4); Monocytes % 9.8 % (3.3-12.3); RBC Red Blood Cell Count 1.75 M/uL (4.33-5.43)
[2018-08-18 00:10] LABS: Protime INR 1.55
[2018-08-18] MEDS ORDERED: NA CHLORIDE 0.9% 250 ML ONE ×2 (00:11→04:54)
[2018-08-18] MEDS ORDERED: NA CHLORIDE 0.9% 500 ML ONE (00:11)
[2018-08-18] MEDS ORDERED: NA CHLORIDE 0.9% 1,000 ML ONE (00:11)
[2018-08-18] MEDS ORDERED: ONDANSETRON 4 MG/2 ML VIAL ONE ×2 (00:11→16:27)
[2018-08-18] MEDS ORDERED: PANTOPRAZOLE 40 MG INJ ONE (00:11)
[2018-08-18 00:26] LABS: Albumin 1.9 g/dL (3.4-5.0); Bilirubin Direct 0.6 mg/dL (0-0.2); Bilirubin Total 1.1 mg/dL (0.2-1.0); Potassium 5.4 mmol/L (3.5-5.1); Protein, Total 6.3 g/dL (6.4-8.2); Troponin (Emerg Dept Use Only) 0.02 ng/mL (0.0-0.045)
[2018-08-18 00:27] LABS: Hematocrit 18.4 % (39.6-49.0)
[2018-08-18] MEDS ORDERED: ACETAMINOPHEN 325 MG TABLET ONE (00:58)
[2018-08-18] MEDS ORDERED: DIPHENHYDRAMINE 50 MG/ML VIAL ONE (00:58)
[2018-08-18] MEDS ORDERED: NA CHLORIDE 0.9% 100 ML IV ONE (01:33)
[2018-08-18] MEDS ORDERED: ALBUTEROL 2.5 MG/3 ML NEB SOL ONE (01:57)
[2018-08-18] MEDS ORDERED: IPRATROPIUM BROM 0.5MG/2.5ML NEB SCH (02:00)
[2018-08-18] MEDS ORDERED: PANTOPRAZOLE INJ 80 MG in NA CHLORIDE 0.9% 250 ML IV SCH (03:07)
[2018-08-18] MEDS ORDERED: ONDANSETRON 4 MG/2 ML VIAL IV PRN (03:07)
[2018-08-18] MEDS ORDERED: DIPHENHYDRAMINE 50 MG/ML VIAL IV ONE (03:07)
[2018-08-18] MEDS ORDERED: ACETAMINOPHEN 500 MG TAB PO PRN (03:07)
[2018-08-18] MEDS: ALBUTEROL 2.5 MG/3 ML NEB SOL NEB SCH ×4 (03:07→19:55)
[2018-08-18] MEDS ORDERED: NA CHLORIDE 0.9% 250 ML IV SCH (03:07)
[2018-08-18 06:21] LABS: ALT/SGPT 41 U/L (12-78); AST/SGOT 69 U/L (15-37); Albumin 1.8 g/dL (3.4-5.0); Alkaline Phosphatase 191 U/L (45-117); BUN Blood Urea Nitrogen 45 mg/dL (7-18); Bicarbonate 24 mmol/L (21-32); Bilirubin Direct 0.6 mg/dL (0-0.2); Bilirubin Total 1.2 mg/dL (0.2-1.0); Glucose Level 118 mg/dL (74-106); Lipase 110 U/L (73-393); Potassium 4.8 mmol/L (3.5-5.1); Protein, Total 5.8 g/dL (6.4-8.2); Sodium Level 140 mmol/L (136-145)
--- NOTE | 2018-08-18 06:21 | EKG ---
Test Date: 2018-08-17 Test Time: 23:25:44 French Teacher: MILTON MEASUREMENT RESULTS: Intervals: Rate: 100 NE: 188 QRSD: 82 QT: 370 QTc: 477 Belcher: P: 49 NE: 188 QRS: -32 T: -17 INTERPRETIVE STATEMENTS: Sinus rhythm with occasional premature ventricular complexes Left axis deviation Nonspecific T wave abnormality Prolonged QT Abnormal ECG Compared to ECG 09/26/2016 05:32:39 Ventricular premature complex(es) now present T-wave abnormality now present Prolonged QT interval now present Electronically Signed On 08-18-18 06:14:44 PSYCHIATRIC NP by Servando Curry
--- NOTE | 2018-08-18 08:34 | RAD REPORT ---
EXAM DESCRIPTION: Ang Single View08/17/2018 11:27 pm CLINICAL HISTORY: Abdominal pain COMPARISON: 2017 FINDINGS: Tiny pleural effusions suspected. The lungs appear clear of acute infiltrate. The heart is normal size. A central venous line remains in place
[2018-08-18 09:18] LABS: Absolute Lymphocytes (CBC) 2.2 K/uL (0.7-4.9); Absolute Monocytes 1.4 K/uL (0.1-1.3); Absolute Neutrophil 7.6 K/uL (1.8-8.0); Basophils % 0.4 % (0-1.3); Eosinophils % 0.7 % (0-4.4); Hematocrit 27.1 % (39.6-49.0); Lymphocytes % 19.7 % (15.3-44.8); MPV 8.2 fL (7.6-11.3); Monocytes % 12.1 % (3.3-12.3); RBC Red Blood Cell Count 2.69 M/uL (4.33-5.43)
[2018-08-18] MEDS: PANTOPRAZOLE INJ 80 MG in NA CHLORIDE 0.9% 250 ML IV SCH ×2 (09:57→23:28)
[2018-08-18] MEDS: Ringers Lactate 1,000 ML IV ONE ×2 (14:34→16:09)
[2018-08-18] MEDS ORDERED: PROPOFOL 200 MG/20 ML VIAL IV ONE (16:26)
[2018-08-18] MEDS ORDERED: LIDOCAINE 1% MPF 2 ML AMPULE ONE (16:27)
[2018-08-18] MEDS: ALBUMIN HUM 5% 250 ML IV ONE ×2 (16:46→16:49)
[2018-08-18] MEDS ORDERED: EPHEDRINE SULF 50 MG/ML VIAL ONE (16:49)
[2018-08-18] MEDS ORDERED: OCTREOTIDE ACETATE 100 MCG/ML IVP ONE (16:59)
[2018-08-18 17:16] VITALS: O2SAT 100
[2018-08-18] MEDS: CEFTRIAXONE/SWI 1gm 1 GM/10 ML SYR IVP SCH (18:06)
[2018-08-18] MEDS: OCTREOTIDE 500 MCG in NA CHLORIDE 0.9% 500 ML IV SCH (18:06)
[2018-08-18] MEDS: NA CHLORIDE 0.9% 1,000 ML IV SCH (18:08)
[2018-08-18 18:24] LABS: Absolute Lymphocytes (CBC) 1.9 K/uL (0.7-4.9); Absolute Monocytes 1.2 K/uL (0.1-1.3); Absolute Neutrophil 5.5 K/uL (1.8-8.0); Basophils % 0.7 % (0-1.3); Eosinophils % 1.8 % (0-4.4); Hematocrit 24.1 % (39.6-49.0); Lymphocytes % 21.6 % (15.3-44.8); MPV 7.8 fL (7.6-11.3); Monocytes % 13.6 % (3.3-12.3); RBC Red Blood Cell Count 2.37 M/uL (4.33-5.43)
--- NOTE | 2018-08-19 00:20 | HP ---
Date of Admission: 08/17/2018 A 73-year-old male with multiple medical problems, including esophageal cancer with liver metastases and prostate cancer. He also back in July had left knee replacement surgery. The patient gave hi story that after his surgery, he did well. However, he has been taking almost Advil 1 or 2 tablets a day for his pain. About a week ago, he had 2 episodes where he saw that his stools are black and ta rry. However, that stopped on its own. He felt bloated at that time and some queasy and abdominal d iscomfort. He came to my office, gave me that history, and however, yesterday he felt a little bit a bdominal discomfort with gases, but he had not noticed any black stools or any rectal bleeding. He d id not have any dizziness or shortness of breath. He was feeling well otherwise. However, I want an order for him of blood count and I have advised him that should he have any rectal bleeding or black stools or if he starts feeling any symptoms of dizziness and fatigue or shortness breath, to go imme diately to emergency room and the patient apparently had started having after that at home. No sympt oms along with black tarry stools. He went to emergency room, where he was found to have acute anemi a from bleeding from upper GI. He was admitted for that. Review of Systems: Gastrointestinal: As above. Cardiovascular: No complaint. Genitourinary: No complaint. Respiratory: Shortness of breath, mild to moderate which started happening with his rectal bleeding with his black tarry stools. Neurological: No complaint. Past Medical History: 1.Esophageal cancer with liver metastasis. 2.Prostate cancer. 3.Lymphoma. 4.Patient also has hypertension, hyperlipidemia, and gastroesophageal reflux disease along with hist ory given above about his surgery. He also had appendectomy. Social History: No smoking, alcohol, or drug abuse history. Family History: Noncontributing. Medications: As mentioned, the patient was taking Advil 1 to 2 a day. He otherwise takes some multi vitamins. Allergies: NO KNOWN DRUG ALLERGIES. Physical Examination: Vital Signs: Blood pressure 110/60, pulse 90, temperature 98.4. Heart: Tachycardic, regular rate and rhythm. Chest: Clear to auscultation. Abdomen: Some gaseous distention with epigastric tenderness. No rigidity. No rebound. Bowel sound s are active. Extremities: No edema. No cyanosis. Peripheral pulses are felt. Neurological examination: Alert, oriented, nonfocal. Grossly intact. Laboratory Data: Chest x-ray no acute pathology. EKG sinus rhythm with occasional premature ventric ular complexes, left axis deviation, nonspecific T-wave abnormality. Abdomen and pelvic CT report is still pending. Initially on presentation, his hemoglobin was 6.2 with hematocrit 18.4. He was boyce sfused in the emergency room and that went up to 8.9 and 27.1, white cell count now is 11.4, platelet s 220. PT 18.5, INR 1.55. Chemistry; lactic acid was 2.1, dropped to 1.6. The rest of his chemistr y is noted. Assessment/plan: Upper gastrointestinal bleeding with acute anemia. Patient is being admitted, boyce sfused, and we will monitor his blood count. We have asked Dr. Overton to see the patient, gastroen terology and patient has been put also on beta-2 agonist breathing treatments for his shortness of br eath and he was put also on Protonix drip. Look orders for details. MFS/MODL Voice ID: [id number]
[2018-08-19] MEDS: ALBUTEROL 2.5 MG/3 ML NEB SOL NEB SCH ×3 (03:10→14:00)
[2018-08-19] MEDS: OCTREOTIDE 500 MCG in NA CHLORIDE 0.9% 500 ML IV SCH ×2 (03:23→13:00)
--- NOTE | 2018-08-19 04:44 | OP ---
Surgeon: Osman Overton MD Procedure Performed: Esophagogastroduodenoscopy. Performing Physician: Osman Overton M.D. Indication For Procedure: Hematemesis and upper GI bleed in a patient with history of esophageal and liver cancer, significant anemia and hypotension due to above. However, currently after transfusion , his vitals have been stabilized. Plan For Anesthesia: Monitored anesthesia care. Complexity: Very high due to patient's comorbidities as well as probability of therapeutic intervent ion. Technique: After obtaining informed consent from the patient and explaining risks and complications, which include, but are not limited to bleeding, infection, perforation, and anesthesia complications , the patient was placed in the left lateral position and sedation was given. From then on, the scop e was advanced through the mouth and was guided up until the second portion of the duodenum. For ful l details, please refer to the findings in the lower section. After the completion of examination, t he scope and equipment were withdrawn and procedure terminated in a safe manner. The patient was saf kody transferred back to the ICU. Findings: Esophagus: In the whole esophagus, there was evidence of scarring likely from prior radia tion therapy due to his esophageal cancer. In the lower esophagus, a very large varix was seen that was almost occluding the lumen. On first view, there did not seem to be any evidence of high risk or any evidence of recent bleeding on the varix; therefore, the scope was passed further down into the stomach and then subsequently into the duodenum. Immediately after entering the duodenal bulb, a hug e ulcer was visualized, which was covering around 75% of the circumference of the bulb. This was aleyda te deep, and surrounding area was inflamed. Carefully, the scope was guided beyond this region, and I was able to go to the second part of the duodenum, which was normal. Subsequently, biopsies were t aken from the ulcer margin as well as the base of the ulcer to rule out malignant process. Also biop sies were taken from the stomach, body, and antrum. Only in the stomach, mild patchy erythema seen i n the body and antrum; however, in the fundic region, there was a small ulcer visualized. This was n ear the GE junction. Biopsies from this region were also taken into jar #3. Subsequently, attention was paid back to the varices to do a detailed examination even though it appeared at that time the b leeding may have been the duodenal ulcer. At this point, clearly a platelet plug was visualized in t he distal esophagus on the varix. A decision was taken to band the varix. Multi-band ligator was us ed, and as soon as I suctioned the region of the platelet plug, it opened up the varix and there was massive spurting of blood that was noted, which temporarily obscured the visual field. Subsequently, suctioning and cleaning were accomplished, and reasonable enough view was obtained. One band was robb ccessfully placed right on top of the bleeding varix with the bleeding point in the middle. This sto pped the bleeding immediately. However, this was not easy as there appeared to be scarring around th e site, maybe from the prior radiation treatment. Also another band was successfully placed more pro ximal to this varix. Subsequently, we waited for a few minutes to ensure there was no recurrence of bleeding, which was not noted; therefore, the scope was withdrawn and procedure was terminated. Complications: None. Tolerance To Anesthesia: Excellent. Postoperative Diagnoses: 1.Very large esophageal varices with bleeding, status post banding. 2.Esophageal scarring due to prior radiation therapy. 3.Small gastric fundic ulcer. 4.Gastritis. 5.Portal hypertensive gastropathy. 6.Large duodenal ulcer crated, rule out malignancy. Plan: We will transfer the patient back to ICU. His condition is critical, but stable at least at t his time. Monitor H and H, transfuse as needed. I will start him on octreotide after a bolus along with his IV Protonix. Also add ceftriaxone b.i.d. IV. We will keep him n.p.o. Given all his medica l problems, there is a concern of recurrent bleed, and we would not be equipped to manage it adequate ly at this facility, so therefore we would recommend to transfer to tertiary care center in case he n eeds further management. He has been going to [facility] and both the patient and preferred to go there; therefore, we will initiate the process. I already spoke to Dr. Oropeza, who agrees with the plan. US/MODL Voice ID: [id number] Report ID: [id number]
[2018-08-19] MEDS: NA CHLORIDE 0.9% 1,000 ML IV SCH (05:17)
[2018-08-19 05:29] VITALS: BMI 28.7
[2018-08-19] MEDS: PANTOPRAZOLE INJ 80 MG in NA CHLORIDE 0.9% 250 ML IV SCH ×2 (06:00→09:43)
[2018-08-19 06:04] LABS: Absolute Lymphocytes (CBC) 1.2 K/uL (0.7-4.9); Absolute Monocytes 1.3 K/uL (0.1-1.3); Absolute Neutrophil 7.2 K/uL (1.8-8.0); Basophils % 0.1 % (0-1.3); Eosinophils % 1.5 % (0-4.4); Hematocrit 23.8 % (39.6-49.0); MPV 8.1 fL (7.6-11.3); Monocytes % 13.1 % (3.3-12.3); RBC Red Blood Cell Count 2.33 M/uL (4.33-5.43)
[2018-08-19 06:19] LABS: BUN Blood Urea Nitrogen 32 mg/dL (7-18); Bicarbonate 24 mmol/L (21-32); Glucose Level 89 mg/dL (74-106); Sodium Level 143 mmol/L (136-145)
[2018-08-19] MEDS: CEFTRIAXONE/SWI 1gm 1 GM/10 ML SYR IVP SCH (08:11)
[2018-08-19] MEDS ORDERED: CALCIUM GLUC 10% INJ 4.65 MEQ in NA CHLORIDE 0.9% 100 ML IV ONE (11:50)
--- NOTE | 2018-08-19 12:30 | RAD REPORT ---
EXAM DESCRIPTION: CT - Abdomen Pelvis Wo Contrast - 08/18/2018 3:07 am CLINICAL HISTORY: The patient is 73 years old and is Male; ABD PAIN TECHNIQUE: Axial computed tomography images of the abdomen and pelvis without intravenous contrast. Sagittal and coronal reformatted images were created and reviewed. This CT exam was performed using o ne or more of the following dose reduction techniques: Automated exposure control, adjustment of the mA and/or kV according to patient size, and/or use of iterative reconstruction technique. COMPARISON: None. FINDINGS: LUNG BASES: Mild dependent subsegmental atelectasis and bibasilar scarring. PLEURAL SPACE: Mild bibasilar pleural thickening. MEDIASTINUM: Small hiatal hernia. ABDOMEN: LIVER: Morphologic changes compatible with hepatic cirrhosis with multiple hypodense masses measuring up to 3.4 x 2.3 cm in the posterior aspect of the right hepatic lobe. Similar mass measuring 3 x 2.2 cm is seen more anteriorly. GALLBLADDER AND BILE DUCTS: Unremarkable. No calcified stones. No ductal dilation. PANCREAS: No ductal dilation. SPLEEN: Atrophic spleen with multiple granuloma. ADRENALS: Unremarkable. No mass. KIDNEYS AND URETERS: Unremarkable. No obstructing stones. No hydronephrosis. STOMACH AND BOWEL: Colonic diverticulosis without definitive peridiverticular stranding. PELVIS: APPENDIX:No findings to suggest acute appendicitis. BLADDER: Unremarkable. No stones. REPRODUCTIVE: Unremarkable as visualized. ABDOMEN and PELVIS: INTRAPERITONEAL SPACE:Moderate upper abdominal and pelvic ascites. No free air. BONE/JOINTS: Moderate multilevel degenerative changes with grade 1 anterolisthesis of L4 on L5 on a s pondylosis basis. Dextroscoliosis of the lumbar spine is also present. SOFT TISSUES: Fat-containing periumbilical hernia. VASCULATURE: Mild calcification of the abdominal aorta is vasculature. LYMPH NODES: Left hilar calcified lymph nodes. IMPRESSION: 1. Hepatic cirrhosis with multiple incompletely characterized heterogenous subcapsular m asses concerning for neoplasm. CT or MRI abdomen with and without contrast renal mass protocol is rec ommended for further characterization. 2. Evidence of granulomatous disease with calcified hilar lymph nodes and splenic granuloma. 3. Colonic diverticulosis. Diverticulitis cannot be entirely in the region of the descending colon ex cluded due to abndant ascites. 4. Small fat-containing supraumbilical hernia. 5. Grade 1 anterolisthesis of L5 on S1 with spondylosis bases. Flexion and extension views may be of diagnostic use. Electronically signed by Derick Harrington DO 08/18/2018 2:45 AM MACHINE TOOL BUILDER Due to temporary technical issues with the PACS/Fluency reporting system, reports are being signed by the in house radiologist as a courtesy to ensure prompt reporting. The interpreting radiologist is f ully responsible for the content of the report.
[2018-08-19 12:52] LABS: Hematocrit 27.7 % (39.6-49.0)
[2018-08-19 17:23] VITALS: BP 125/72
[2018-08-19 17:43] VITALS: TEMP 97.5
--- NOTE | 2018-08-19 18:06 | PN ---
Subjective: The patient is clinically stable. He has no new complaints. Objective: VITAL SIGNS: His blood pressure 115/65, pulse 92, temperature 98.4. HEART: Regular rate and rhythm. CHEST: Clear to auscultation. ABDOMEN: Soft, nontender. Bowel sounds are active. EXTREMITIES: No edema. No cyanosis. Peripheral pulses are felt. NEUROLOGIC: Alert, oriented, nonfocal. Grossly intact. Laboratory Data: Hemoglobin at 8.2, hematocrit 23.8, platelets 200. Chem-7 noted, calcium 7.2. Assessment And Plan: Upper gastrointestinal bleeding. Dr. Overton, Gastroenterology, did upper gas trointestinal esophagogastroduodenoscopy and there was evidence of large varices in the lower esophag us along with dysphagia, scarring from previous radiation treatment. The patient also had duodenal u lcer with inflamed surrounding area. Biopsy was taken. The patient had also platelet plug in the dis yared esophagus on the varices. The patient is currently hemodynamically stable. He is not actively bleeding. However, he needs to be transferred to [facility] or [facility] because of his history of esopha geal cancer with metastasis. Dr. Overton and I have discussed the case and arrangements being done for his transfer. Meanwhile, we will keep the patient monitored on the current treatment regimen. Tierra guajardo orders for details. VALENTINE/MODTierra Voice ID: [id number] Report ID: [id number]
== END 2018-08-19 17:30 | disposition short-term general hospital (02) | DRG 369 ==
LOC: ER 22:17 → ERHOLD 23:59 → 3RD-ICU 08-18 02:23
PROVIDERS: ADMIT Internal Medicine; ATTEND Internal Medicine
PROC: 0DB78ZX Excision of Stomach, Pylorus, Via Natural or Artificial Opening Endoscopic, Diagnostic (ICD-10-PCS; 2018-08-18)
PROC: 0DB68ZX Excision of Stomach, Via Natural or Artificial Opening Endoscopic, Diagnostic (ICD-10-PCS; 2018-08-18)
PROC: 0DB48ZX Excision of Esophagogastric Junction, Via Natural or Artificial Opening Endoscopic, Diagnostic (ICD-10-PCS; 2018-08-18)
PROC: 06L34CZ Occlusion of Esophageal Vein with Extraluminal Device, Percutaneous Endoscopic Approach (ICD-10-PCS; 2018-08-18)
PROC: 30233N1 Transfusion of Nonautologous Red Blood Cells into Peripheral Vein, Percutaneous Approach (ICD-10-PCS; 2018-08-18)
PROC: 0DB98ZX Excision of Duodenum, Via Natural or Artificial Opening Endoscopic, Diagnostic (ICD-10-PCS; principal; 2018-08-18 15:00)
DX: I85.01 Esophageal varices with bleeding (principal); C15.9 Malignant neoplasm of esophagus, unspecified; C78.7 Secondary malignant neoplasm of liver and intrahepatic bile duct; C85.90 Non-Hodgkin lymphoma, unspecified, unspecified site; K76.6 Portal hypertension; C61 Malignant neoplasm of prostate; I10 Essential (primary) hypertension; E78.5 Hyperlipidemia, unspecified; K21.9 Gastro-esophageal reflux disease without esophagitis; D64.9 Anemia, unspecified; K25.9 Gastric ulcer, unspecified as acute or chronic, without hemorrhage or perforation; K29.70 Gastritis, unspecified, without bleeding; K31.89 Other diseases of stomach and duodenum; K26.3 Acute duodenal ulcer without hemorrhage or perforation; I95.9 Hypotension, unspecified
CPT/HCPCS: 36415; 71045; 74176; 80048; 80076; 83605; 83690; 83735; 83880; 84484; 85014; 85018; 85025; 85610; 86850; 86900; 86901; 87040; 88305; 88312; 93005; 96365; 96366; 96375; 99285; C9113; J0610; J0696; J2001; J2354; J2405; J2704; J7030; P9016; P9040; P9045

== ENCOUNTER 2019-04-04 10:35 | Inpatient (IN) | payer OTHER ==
--- NOTE | 2019-04-04 11:35 | RAD REPORT ---
EXAM DESCRIPTION: RAD - Chest Single View - 04/04/2019 11:29 am CLINICAL HISTORY: weakness Chest pain. COMPARISON: Chest Single View dated 08/17/2018; Chest Single View dated 09/26/2016; Chest Pa And Lat (2 Views) dated 09/25/2016 FINDINGS: Portable technique limits examination quality. Bilateral pulmonary opacities are present, greater on the right, likely representing pneumonia or asy mmetric pulmonary edema. Trace pleural fluid bilaterally. The heart is mildly enlarged in size. Right -sided port catheter has tip in the SVC.
--- NOTE | 2019-04-04 11:47 | RAD REPORT ---
EXAM DESCRIPTION: US - Lower Extremity Arterial Bilat - 04/04/2019 11:33 am CLINICAL HISTORY: Peripheral vascular disease, bilateral leg weakness;Pain COMPARISON: No comparisons TECHNIQUE: Bilateral lower extremity arterial Doppler examination was performed with waveform tracin g and velocity measurements. ABIs were not requested or performed. FINDINGS: Mild multifocal multisegmental atheromatous plaquing is seen in both lower extremity arter ial systems. Triphasic waveforms are seen throughout both lower extremity arterial systems to the level of the willie salis pedis arteries. No high-grade stenosis or occlusion seen. IMPRESSION: No evidence of significant peripheral vascular disease.
--- NOTE | 2019-04-04 11:58 | RAD REPORT ---
EXAM DESCRIPTION: US - Extrem Venous W Compress Emil - 04/04/2019 11:44 am CLINICAL HISTORY: SWELLING Bilateral leg edema and swelling. COMPARISON: No comparisons TECHNIQUE: Real-time sonographic interrogation of the left and right lower extremity deep venous sys tems was performed. FINDINGS: Normal compressibility, flow augmentation, phasic flow and spontaneous flow is identified in both the left and right lower extremity deep venous systems. IMPRESSION: No sonographic evidence of left or right lower extremity deep venous thrombosis.
[2019-04-04 12:25] LABS: Protime INR 1.46
[2019-04-04 12:36] LABS: Absolute Lymphocytes (CBC) 0.1 K/uL (0.7-4.9); Basophils % 0.2 % (0-1.3); Hematocrit 34.2 % (39.6-49.0); MPV 9.2 fL (7.6-11.3); RBC Red Blood Cell Count 3.36 M/uL (4.33-5.43)
[2019-04-04] MEDS ORDERED: NA CHLORIDE 0.9% 500 ML ONE (13:07)
[2019-04-04 13:48] LABS: Bilirubin Direct 1.1 mg/dL (0-0.2); Bilirubin Total 2.8 mg/dL (0.2-1.0); Magnesium 2.2 mg/dL (1.8-2.4); Potassium 4.3 mmol/L (3.5-5.1); Protein, Total 7.4 g/dL (6.4-8.2); Troponin (Emerg Dept Use Only) 0.15 ng/mL (0.0-0.045)
[2019-04-04 13:59] LABS: Blood Morphology Comment NOT SEEN (NOT SEEN); Platelet Estimate ADEQ; Urine White Blood Cell Casts OK
--- NOTE | 2019-04-04 14:42 | EKG ---
Test Date: 2019-04-04 Test Time: 11:49:39 Stem Assembler: SHARIFA MEASUREMENT RESULTS: Intervals: Rate: 103 UT: 206 QRSD: 76 QT: 354 QTc: 463 Kiester: P: 35 UT: 206 QRS: -34 T: -17 INTERPRETIVE STATEMENTS: Sinus tachycardia Left axis deviation Possible Anterolateral infarct, age undetermined Abnormal ECG Compared to ECG 08/17/2018 23:25:44 Myocardial infarct finding now present Sinus rhythm no longer present Ventricular premature complex(es) no longer present T-wave abnormality no longer present Prolonged QT interval no longer present Electronically Signed On 04-04-19 14:41:21 CDT by Servando Curry
--- NOTE | 2019-04-04 15:08 | EDPHYS ---
Physician Documentation [facility] Name: Marcin Luu Age: 73 yrs Sex: Male : 1945 Arrival Date: 04/04/2019 Time: 10:37 Bed 17 Private MD: ED Physician Ernie Martinez HPI: 04/04 11:30 This 73 yrs old Male presents to ER via EMS with complaints of Leg Swelling, pm1 General Weakness. 11:30 Details of fall: The patient fell from seated position, out of a chair. Onset: The pm1 symptoms/episode began/occurred this morning. Associated injuries: The patient sustained injury to the chest, abrasion, dorsal aspect of right forearm, abrasion. Severity of symptoms: Severity of symptoms: in the emergency department the symptoms are actually worse. Patient reports increased generalized weakness for the past 2 weeks. Has not been eating well or drinking well. Has been evaluated by Dr. Marsh and has an appointment with her tomorrow for pill cam report. Today he was sitting on his chair reaching over to plug in his laptop and then he fell on his right side. Denies any pain but he could not get up off the ground. He believes that he was down for 2 hours. Patient with abrasions to right chest wall, right flank area and right forearm. Historical: - Allergies: 10:48 NKA; bp - Home Meds: 10:48 pantoprazole 40 mg oral TbEC 1 tab once daily [Active]; Furosemide Oral [Active]; bp Spironolactone Oral [Active]; - PMHx: 10:48 esophageal cancer; LYMPHOMA; Prostate Cancer; skin cancer; Cirrhosis; bp - Immunization history:: Adult Immunizations up to date. - Social history:: Smoking status: Patient/guardian denies using tobacco. - Ebola Screening: : No symptoms or risks identified at this time. ROS: 11:30 Constitutional: Negative for fever, chills, and weight loss, Eyes: Negative for injury, pm1 pain, redness, and discharge, ENT: Negative for injury, pain, and discharge, Neck: Negative for injury, pain, and swelling, Cardiovascular: Negative for chest pain, palpitations, and edema, Respiratory: Negative for shortness of breath, cough, wheezing, and pleuritic chest pain, Abdomen/GI: Negative for abdominal pain, nausea, vomiting, diarrhea, and constipation. 11:30 Back: Negative for injury and pain, MS/Extremity: Negative for injury and deformity. 11:30 Skin: Positive for abrasion(s), of the right side of chest and right flank and dorsal aspect of right forearm. 11:30 Neuro: Positive for weakness, generalized, Negative for dizziness, headache, numbness, tingling. Exam: 11:30 Head/Face: Normocephalic, atraumatic. Eyes: Pupils equal round and reactive to light, pm1 extra-ocular motions intact. Lids and lashes normal. Conjunctiva and sclera are non-icteric and not injected. Cornea within normal limits. Periorbital areas with no swelling, redness, or edema. ENT: Nares patent. No nasal discharge, no septal abnormalities noted. Tympanic membranes are normal and external auditory canals are clear. Oropharynx with no redness, swelling, or masses, exudates, or evidence of obstruction, uvula midline. Mucous membranes moist. Neck: Trachea midline, no thyromegaly or masses palpated, and no cervical lymphadenopathy. Supple, full range of motion without nuchal rigidity, or vertebral point tenderness. No Meningismus. Chest/axilla: Normal chest wall appearance and motion. Nontender with no deformity. No lesions are appreciated. 11:30 Cardiovascular: Regular rate and rhythm with a normal S1 and S2. No gallops, murmurs, or rubs. Normal PMI, no JVD. No pulse deficits. Respiratory: Lungs have equal breath sounds bilaterally, clear to auscultation and percussion. No rales, rhonchi or wheezes noted. No increased work of breathing, no retractions or nasal flaring. Abdomen/GI: Soft, non-tender, with normal bowel sounds. No distension or tympany. No guarding or rebound. No evidence of tenderness throughout. Back: No spinal tenderness. No costovertebral tenderness. Full range of motion. 11:30 MS/ Extremity: Pulses equal, no cyanosis. Neurovascular intact. Full, normal range of motion. 11:30 Constitutional: The patient appears in no acute distress, alert, awake, comfortable, non-diaphoretic, non-toxic, well groomed, emaciated, frail. 11:30 Skin: Appearance: normal except for affected area, injury, abrasion(s), small abrasion noted, of the right chest and right flank, small skin tear to right forearm. 11:30 Neuro: Orientation: is normal, Motor: is normal, moves all fours, Sensation: is normal, no obvious gross deficits. Vital Signs: 10:40 BP 93 / 63; Pulse 106; Resp 22; Temp 97.8; Pulse Ox 97% ; Weight 58.06 kg; bp 12:20 BP 85 / 63; Pulse 102; Resp 27; Pulse Ox 94% ; bp 13:49 BP 94 / 71; Pulse 104; Resp 15; Pulse Ox 94% ; bp 15:06 BP 86 / 56; Pulse 103; Resp 20; Pulse Ox 94% ; bp 16:13 BP 86 / 64; Pulse 101; Resp 20; Pulse Ox 96% ; bp MDM: 10:40 Patient medically screened. pm1 13:00 ED course: No white count, shortness of breath or cough. Patient clinically does not pm1 have pneumonia. 14:25 ED course: Patient with possible pulmonary edema on chest x-ray with elevated BNP and pm1 elevated troponin. No chest pain or shortness of breath. Has bilateral pedal edema. Does not appear to be coronary event therefore no anticoagulation initiated. 15:04 Data reviewed: vital signs. Data interpreted: Pulse oximetry: on room air is 97 %. pm1 Interpretation: normal. Counseling: I had a detailed discussion with the patient and/or guardian regarding: the historical points, exam findings, and any diagnostic results supporting the discharge/admit diagnosis, lab results, radiology results, the need for further work-up and treatment in the hospital. 16:03 Physician consultation: Carli Oropeza MD was called at 15:04, was contacted at 16:03, pm1 regarding admission, patient's condition, and will see patient tomorrow, would like consultation with Dr. Dean, would like further tests performed, Echocardiogram. Labs: CBC, CPK, BMP in AM, would like medications started, NS 100 mL per hour, Lasix 20 mg IV. 16:15 ED course: patient reports right hip pain and right ankle pain now. did not have that pm1 complaint on arrival and initial evaluation. Will order hip and ankle x-ray. 04/04 10:57 Order name: Basic Metabolic Panel; Complete Time: 14:21 pm1 04/04 10:57 Order name: CBC with Diff; Complete Time: 14:21 pm1 04/04 10:57 Order name: LFT's; Complete Time: 14:21 pm04/04 10:57 Order name: Magnesium; Complete Time: 14:21 pm04/04 10:57 Order name: NT PRO-BNP; Complete Time: 14:21 pm04/04 10:57 Order name: PT-INR; Complete Time: 12:58 pm04/04 10:57 Order name: Extrem Venous W Compression Emil US; Complete Time: 12:08 pm04/04 10:57 Order name: Lower Extremity Arterial Bilat US; Complete Time: 12:08 pm04/04 10:57 Order name: Troponin (emerg Dept Use Only); Complete Time: 14:21 pm04/04 10:57 Order name: XRAY Chest (1 view); Complete Time: 11:50 pm04/04 14:01 Order name: CBC Smear Scan; Complete Time: 14:21 EDMS 04/04 14:23 Order name: CPK; Complete Time: 15:01 pm04/04 16:12 Order name: Hip Right 2 View XRAY 04/04 16:12 Order name: Ankle Right 3 View XRAY 04/04 10:57 Order name: EKG; Complete Time: 10:59 pm04/04 10:57 Order name: Cardiac monitoring; Complete Time: 11:18 pm04/04 10:57 Order name: EKG - Nurse/Tech; Complete Time: 11:51 pm04/04 10:57 Order name: IV Saline Lock; Complete Time: 11:18 pm04/04 10:57 Order name: Labs collected and sent; Complete Time: 11:18 pm04/04 10:57 Order name: O2 Per Protocol; Complete Time: 11:18 pm04/04 10:57 Order name: O2 Sat Monitoring; Complete Time: 11:18 pm04/04 11:30 Order name: Labs - recollect needed; Complete Time: 12:02 bd 04/04 17:03 Order name: RAD; Complete Time: 17:29 EDMS Administered Medications: 13:11 Drug: NS 0.9% 500 ml Route: IV; Rate: bolus; Site: right antecubital; bp 16:11 Follow up: IV Status: Completed infusion; IV Intake: 500ml bp 15:40 Drug: NS 0.9% 1000 ml Route: IV; Rate: 100 ml/hr; Site: right antecubital; bp 16:43 Follow up: IV Status: Infusion continued upon admission bp 15:40 Drug: NS 0.9% 500 ml Route: IV; Rate: bolus; Site: right antecubital; bp 16:35 Follow up: IV Status: Completed infusion; IV Intake: 500ml bp 16:20 Drug: Lasix 20 mg Route: IVP; Site: right antecubital; bp 16:42 Follow up: Response: No adverse reaction bp Disposition: 04/05 08:56 Co-signature as Attending Physician, Ernie Martinez MD I agree with the assessment and kdr plan of care. Disposition: 04/04/19 15:07 Hospitalization ordered by Carli Oropeza for Inpatient Admission. Preliminary diagnosis are Rhabdomyolysis, Dehydration, Fall from chair, Abrasion of right front wall of thorax, Abrasion of right forearm. - Bed requested for Telemetry/MedSurg (Inpatient). - Status is Inpatient Admission. bp - Condition is Stable. - Problem is new. - Symptoms have improved. UTI on Admission? No Signatures: Dispatcher [employer] EDMS Cha Holder Diana, STAR RN dw Ernie Martinez MD MD kdr Marinas, Patrick, NP INTERCEPTOR OPERATOR pm1 Chad Butcher RN RN bp Corrections: (The following items were deleted from the chart) 04/04 15:07 15:07 Hospitalization Ordered by Carli Oropeza MD for Inpatient Admission. Preliminary pm1 diagnosis is Rhabdomyolysis; Dehydration. Bed requested for Telemetry/MedSurg (Inpatient). Status is Inpatient Admission. Condition is Stable. Problem is new. Symptoms have improved. UTI on Admission? No. pm1 15:08 15:07 04/04/2019 15:07 Hospitalization Ordered by Carli Oropeza MD for Inpatient pm1 Admission. Preliminary diagnosis is Rhabdomyolysis; Dehydration; Fall from chair. Bed requested for Telemetry/MedSurg (Inpatient). Status is Inpatient Admission. Condition is Stable. Problem is new. Symptoms have improved. UTI on Admission? No. pm1 15:54 15:08 04/04/2019 15:07 Hospitalization Ordered by Carli Oropeza MD for Inpatient dw Admission. Preliminary diagnosis is Rhabdomyolysis; Dehydration; Fall from chair; Abrasion of right front wall of thorax; Abrasion of right forearm. Bed requested for Telemetry/MedSurg (Inpatient). Status is Inpatient Admission. Condition is Stable. Problem is new. Symptoms have improved. UTI on Admission? No. pm1 17:09 15:54 04/04/2019 15:07 Hospitalization Ordered by Carli Oropeza MD for Inpatient bp Admission. Preliminary diagnosis is Rhabdomyolysis; Dehydration; Fall from chair; Abrasion of right front wall of thorax; Abrasion of right forearm. Bed requested for Telemetry/MedSurg (Inpatient). Status is Inpatient Admission. Condition is Stable. Problem is new. Symptoms have improved. UTI on Admission? No. dw
--- NOTE | 2019-04-04 15:08 | ER ---
Nurse's Notes [facility] Name: Marcin Luu Age: 73 yrs Sex: Male : 1945 Arrival Date: 04/04/2019 Time: 10:37 Bed 17 Private MD: Diagnosis: Rhabdomyolysis;Dehydration;Fall from chair;Abrasion of right front wall of thorax;Abrasion of right forearm Presentation: 04/04 10:40 Presenting complaint: EMS states: SLID OFF SOFA ONTO GROUND, DOWN UNKNOWN AMOUNT OF bp TIME. Transition of care: patient was not received from another setting of care. Onset of symptoms is unknown. Risk Assessment: Do you want to hurt yourself or someone else? Patient reports no desire to harm self or others. Initial Sepsis Screen: Does the patient meet any 2 criteria? HR > 90 bpm. No. Patient's initial sepsis screen is negative. Does the patient have a suspected source of infection? No. Patient's initial sepsis screen is negative. Care prior to arrival: IV initiated. 20 GA, in the right antecubital area. 10:40 [facility] bp 10:40 Acuity: SHERWIN 2 bp Triage Assessment: 10:48 General: Appears distressed, comfortable, ill, Behavior is calm, cooperative, bp appropriate for age. Pain: Complains of pain in right leg and left leg. EENT: No deficits noted. Neuro: No deficits noted. Cardiovascular: Rhythm is sinus tachycardia. Respiratory: No deficits noted. GI: Abdomen is distended. : No signs and/or symptoms were reported regarding the genitourinary system. Derm: No deficits noted. Musculoskeletal: Reports weakness in right leg and left leg numbness in right leg and left leg. Historical: - Allergies: 10:48 NKA; bp - Home Meds: 10:48 pantoprazole 40 mg oral TbEC 1 tab once daily [Active]; Furosemide Oral [Active]; bp Spironolactone Oral [Active]; - PMHx: 10:48 esophageal cancer; LYMPHOMA; Prostate Cancer; skin cancer; Cirrhosis; bp - Immunization history:: Adult Immunizations up to date. - Social history:: Smoking status: Patient/guardian denies using tobacco. - Ebola Screening: : No symptoms or risks identified at this time. Screenin:53 Abuse screen: Denies threats or abuse. Denies injuries from another. Nutritional bp screening: No deficits noted. Tuberculosis screening: No symptoms or risk factors identified. Fall Risk None identified. Assessment: 10:53 General: SEE TRIAGE NOTE. bp 11:51 Reassessment: PT RETURNED FROM U/S. bp 13:49 Reassessment: Patient and/or family updated on plan of care and expected duration. Pain bp level reassessed. Patient is alert, oriented x 3, equal unlabored respirations, skin warm/dry/pink. 15:06 Reassessment: PT TO BE ADMITTED. bp Vital Signs: 10:40 BP 93 / 63; Pulse 106; Resp 22; Temp 97.8; Pulse Ox 97% ; Weight 58.06 kg; bp 12:20 BP 85 / 63; Pulse 102; Resp 27; Pulse Ox 94% ; bp 13:49 BP 94 / 71; Pulse 104; Resp 15; Pulse Ox 94% ; bp 15:06 BP 86 / 56; Pulse 103; Resp 20; Pulse Ox 94% ; bp 16:13 BP 86 / 64; Pulse 101; Resp 20; Pulse Ox 96% ; bp ED Course: 10:37 Patient arrived in ED. sg 10:40 Juan Evangelista NP is PHCP. pm1 10:40 Ernie Martinez MD is Attending Physician. pm1 10:40 Arm band placed on. bp 10:45 Chad Butcher, STAR is Primary Nurse. bp 10:47 Triage completed. bp 10:53 Patient has correct armband on for positive identification. Bed in low position. Call bp light in reach. Side rails up X2. Adult w/ patient. 10:53 Maintain EMS IV. Dressing intact. Good blood return noted. Site clean \T\ dry. Gauge \T\ bp site: 20 GAUGE R AC. 11:11 Initial lab(s) drawn, by me, sent to lab. dh3 11:30 Ultrasound completed. hr 11:32 XRAY Chest (1 view) In Process Unspecified. EDMS 11:38 Extrem Venous W Compression Emil US In Process Unspecified. EDMS 11:38 Lower Extremity Arterial Bilat US In Process Unspecified. EDMS 15:06 Carli Oropeza MD is Hospitalizing Provider. pm1 16:42 No provider procedures requiring assistance completed. Patient admitted, IV remains in bp place. Administered Medications: 13:11 Drug: NS 0.9% 500 ml Route: IV; Rate: bolus; Site: right antecubital; bp 16:11 Follow up: IV Status: Completed infusion; IV Intake: 500ml bp 15:40 Drug: NS 0.9% 1000 ml Route: IV; Rate: 100 ml/hr; Site: right antecubital; bp 16:43 Follow up: IV Status: Infusion continued upon admission bp 15:40 Drug: NS 0.9% 500 ml Route: IV; Rate: bolus; Site: right antecubital; bp 16:35 Follow up: IV Status: Completed infusion; IV Intake: 500ml bp 16:20 Drug: Lasix 20 mg Route: IVP; Site: right antecubital; bp 16:42 Follow up: Response: No adverse reaction bp Intake: 16:11 IV: 500ml; Total: 500ml. bp 16:35 IV: 500ml; Total: 1000ml. bp Outcome: 15:07 Decision to Hospitalize by Provider. pm1 16:41 Admitted to Tele accompanied by tech, family with patient, via stretcher, room 431, bp with chart, Report called to [facility] 16:41 Condition: stable 16:41 Instructed on the need for admit. 17:09 Patient left the ED. bp Signatures: Dispatcher [employer] EDMS Galo Lopez, RN RN Lacy Callejas Patrick, INSTRUCTOR PAINTING INSTRUCTOR PAINTING pm1 Lian Marsh 3 Chad Butcher RN RN bp
[2019-04-04] MEDS ORDERED: NA CHLORIDE 0.9% 250 ML ONE (15:45)
[2019-04-04] MEDS ORDERED: FUROSEMIDE 20 MG/ 2ML VIAL ONE (16:33)
--- NOTE | 2019-04-04 16:55 | RAD REPORT ---
EXAM DESCRIPTION: RAD - Ankle Right 3 View - 04/04/2019 4:44 pm CLINICAL HISTORY: Right ankle pain status post fall FINDINGS: Medial soft tissue swelling. Oval bony density lies adjacent to the medial malleolus. It has a sclerotic border and is considered more likely to be chronic than acute No acute fracture or dislocation seen
[2019-04-04] MEDS: NA CHLORIDE 0.9% 1,000 ML IV SCH (17:17)
--- NOTE | 2019-04-04 17:36 | RAD REPORT ---
EXAM DESCRIPTION: RAD - Hip Right 2 View - 04/04/2019 4:44 pm CLINICAL HISTORY: Right hip pain FINDINGS: No fracture or dislocation is seen. The bones are osteoporotic. If patient continues have symptoms to suggest an occult fracture MRI would be recommended
[2019-04-04 18:13] VITALS: BMI 20.4
[2019-04-04] MEDS ORDERED: INFLUENZA VACCINE (for 3y+) 0.5 ML DOSE IMVAC ONE (18:30)
[2019-04-04] MEDS ORDERED: CEFTRIAXONE 1 GM/NS 50 ML 1 GM/50 ML BAG IV SCH (20:00)
[2019-04-04] MEDS ORDERED: CEFTRIAXONE 1000 MG/VIAL IVP SCH (21:00)
[2019-04-04] MEDS ORDERED: CEFTRIAXONE/SWI 1gm 1 GM/10 ML SYR ONE (22:00)
[2019-04-04 22:30] VITALS: O2SAT 93
[2019-04-04] MEDS ORDERED: CEFTRIAXONE 1 GM/10 ML SYR IVP SCH (23:00)
[2019-04-05] MEDS: ALBUTEROL 2.5 MG/3 ML NEB SOL NEB SCH ×4 (02:00→20:05)
[2019-04-05] MEDS: NA CHLORIDE 0.9% 1,000 ML IV SCH (02:47)
[2019-04-05 06:21] LABS: Absolute Lymphocytes (CBC) 0.2 K/uL (0.7-4.9); Basophils % 0.1 % (0-1.3); Hematocrit 34.8 % (39.6-49.0); MPV 7.9 fL (7.6-11.3); RBC Red Blood Cell Count 3.44 M/uL (4.33-5.43)
[2019-04-05 06:59] LABS: Potassium 4.2 mmol/L (3.5-5.1)
[2019-04-05] MEDS: FUROSEMIDE 20 MG/ 2ML VIAL IV SCH ×2 (08:42→16:20)
[2019-04-05 11:00] LABS: Urine Appearance TURBID; Urine Bilirubin NEGATIVE (NEG); Urine Blood 3+ (NEG); Urine Color YELLOW; Urine Glucose NEGATIVE (NEG); Urine Protein TRACE (NEG); Urine Urobilinogen 0.2 mg/dL (0.2-1.0)
[2019-04-05 11:11] LABS: Urine Microscopic Reflex ORDER UMIC
--- NOTE | 2019-04-05 11:18 | CON ---
Date of Consultation: 04/05/[address] Oropeza's service on 04/04/2019, I saw the patient on 04/05/2019. Reason For Consultation: Elevated troponin and pulmonary edema. History Of Present Illness: Mr. Luu is a 73-year-old male, no significant past cardiac history. Vaibhav cr has a history of COPD, gastroesophageal reflux disease. He has lymphoma, esophageal cancer, prosta te cancer, skin cancer, and cirrhosis of the liver. Came in with what appeared to be like rhabdomyol ysis, and shortness of breath. Chest x-ray showed pneumonia versus CHF. He is on antibiotics. He i s on IV Lasix. His BNP was 2702. His troponin was 0.15. His CPK was 1074. He had a creatinine of 2.19. His sodium was 130 and BUN is 48. No chest pain reported. No nausea or vomiting or diaphores is. Patient denied PND or orthopnea but has had pedal edema and shortness of breath. Past Medical History: As stated above. Allergies: NONE. Review of Systems: Negative. Social History: Negative. Family History: Noncontributory. Medications: At home, include Lasix, Aldactone, Protonix, and inhalers. Physical Examination: General: Mr. Luu was alert and oriented to name and place. HEENT: Negative. Neck: Supple. No bruit. Chest: Reveals rales both bases. Cardiac: Exam revealed a regular rhythm and rate with an aortic sclerosis, murmur. No gallops. No rubs. Abdomen: Benign. Extremities: Revealed 1+ edema. Skin: Moist. Neurologic: He was obtunded. Nonfocal. Pulses were present distally bilaterally. Diagnostic Data: Creatinine was 2.19. CPK was 1074. Troponin is 0.15. BNP was 2702. Sodium was 1 30, BUN is 48. Chest x-ray showed pneumonia versus CHF. Hip and ankle x-ray were negative. Venous Doppler was negative. Arterial Doppler was negative. EKG showed sinus tachycardia with possible ant erolateral infarct. Impression And Plan: 1.Possible acute onset congestive heart failure, maybe diastolic, elevated troponin elevated BNP. E chocardiogram is pending. We will see what that shows. I agree with Lasix use as well as Aldactone. I will discuss the case further with Dr. Oropeza. The patient is not a candidate for cardiac inter vention or invasive procedures. I do not think we need to do any stress testing on him. I agree wit h use of antibiotics. 2.Renal insufficiency stage 4 with elevated CPK, possibly all consistent with rhabdomyolysis and maye e mild dehydration as well. His sodium and BUN are consistent with that as well. 3.History of chronic obstructive pulmonary disease. 4.History of gastroesophageal reflux disease. 5.History of lymphoma, esophageal cancer, prostate cancer, and skin cancer. 6.History of cirrhosis. We will continue to follow Mr. Luu. CELESTINO/BIJAL Voice ID: [id number] Report ID: [id number]
[2019-04-05 12:18] LABS: Urine Bacteria 20-50 /HPF (NONE SEEN); Urine RBC TNTC /HPF (NONE SEEN)
[2019-04-05 12:19] LABS: Urine Culture Reflex Order REFLEXED
--- NOTE | 2019-04-05 19:23 | P.HP ---
Certification for Inpatient Patient admitted to: Inpatient With expected LOS: >2 Midnights Practitioner: I am a practitioner with admitting privileges, knowledge of patient current condition, hospital course, and medical plan of care. Services: Services provided to patient in accordance with Admission requirements found in Title 42 Section 412.3 of the Code of Federal Regulations Patient History Date of Service: 04/05/19 Reason for admission: WEAKNESS, FALLING FOR LAST TWO MONTHS. 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 I HAVE NEVER SEEN HIM BEFORE HIS IS MY PATIENT AND REQUESTED FOR ME TO SEE HIM WHILE HERE AND IF HE GETS DISCHARGED THEN IN OFFICE. ABOUT SIX YEARS AGO HE ONLY HAD FATTY LIVER. LATER HE WAS FOUND TO HAVE ESOPHAGEAL CANCER FOR WHICH [facility] DID CHEMO AND RADIATION THERAPY AND NOW IT IS NOT DETECTABLE. 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 NOW SINCE KNEE SURGERY HIS CIRRHOSIS ACTED UP PER . HE HAS LOST 60 LBS IN LAST 6 MONTHS, HE HAS HAD RECURRENT ASICTES AND TAPS DONE FOR IT. HE HAS HAD ESOPHAGEAL VARICES BANDED A FEW TIMES. LAST TIME HE SAW DR GUILLEN AT [facility] WHO IS CIRRHOSIS MD WAS ABOUT TWO MONTHS AGO. I CALLED AND TALKED TO HIM. HE SAID THAT IT IS DIFFICULT TO CONTROL HIS FLUID IN ABDOMEN. HE HAS HIM ON TWO DIURETICS. NOW MR. LUNA IS ADMITTED FOR FALLS, NEW RENAL FAILURES AND LUNG INFILTRATES. HE HAS NO FEVER OR COUGH. Allergies No Known Allergies Allergy (Verified 04/04/19 18:38) Home Medications: Biotin [Nail-Ex] 2,500 mcg PO DAILY 04/04/19 Cyanocobalamin (Vitamin B-12) [Vitamin B-12] 5,000 mcg PO DAILY 04/04/19 Furosemide [Lasix] 20 mg PO DAILY 04/04/19 Ipratropium [place] 15 ml NS QID 04/04/19 Pantoprazole Sodium 20 mg PO DAILY 04/04/19 Spironolactone 25 mg PO DAILY 04/04/19 - Past Medical/Surgical History Has patient received pneumonia vaccine in the past: Yes Diabetic: No -: LYMPHOMA -: PHERIPHERAL NEUROPTHY -: History of LOWER ESOPHAGEAL CANCER. -: Skin Cancer -: prostate cancer -: Liver Cancer -: Cemo and radiations -: APPENDECTOMY -: Left Knee Replacement -: Liver ablations - Family History Mother -: Cancer Notes: Cancer of the urterus and Emil breast as stated Father -: Cancer Notes: Prostate cancer Brother -: Cancer, Liver disease Notes: Liver Cancer - Social History Smoking Status: Former smoker Alcohol use: No CD- Drugs: No Caffeine use: No Place of Residence: Home Review of Systems 10-point ROS is otherwise unremarkable General: Weakness, Malaise, As per HPI Gastrointestinal: Distention Physical Examination - Vital Signs Temperature: 97.7 F Blood Pressure: 95/58 Pulse: 111 Respirations: 19 Pulse Ox (%): 90 - Physical Exam General: Alert, Cachectic, Moderate distress HEENT: Atraumatic, PERRLA, Mucous membr. moist/pink, EOMI, Sclerae nonicteric Neck: Supple, 2+ carotid pulse no bruit, No LAD, Without JVD or thyroid abnormality Respiratory: Clear to auscultation bilaterally, Normal air movement Cardiovascular: Regular rate/rhythm, Normal S1 S2 Gastrointestinal: Normal bowel sounds, No tenderness, Ascites Musculoskeletal: No tenderness Integumentary: No rashes Neurological: Normal gait, Normal speech, Normal strength at 5/5 x4 extr, Normal tone, Normal affect Lymphatics: No axilla or inguinal lymphadenopathy Assessment and Plan - Problems (Diagnosis) (1) Prerenal azotemia Current Visit: Yes Status: Acute Plan: I BELIEVE HIS RENAL ISSUES ARE FROM DEHYDRATION CLINICALLY HE LOOKS DEHYDRATED. HE HAS THIRD SPACING. I WILL HOLD LASIX NOW. GIVE HIM GENTLE HYDRATION. I TALKED TO DR. MILLS. I HAD A LONG TALK WITH . SHE IS IN QUITE A DENIAL WE SEE WITH MANY CHADD PATIENTS. HE IS TERMINAL IN MY OPINION WITH SEVERE CIRRHOSIS AND COMPLICATIONS. HE DOES HAVE LIVING WILL. HE DOES NOT HAVE ANY RESPIRATORY SYMPTOMS. (2) Cirrhosis Current Visit: Yes Status: Chronic Plan: FROM FATTY LIVER. COMOFRT CARE. HE IS NOT CUREABLE. HE IS NOT A TRANSPLANT CANDIDATE. UNDERSTANDS BUT DID NOT BELIEVE WHEN I SAID HE IS VERY SEROUS AND MAY NEVER GO BACK TO HIS STATUS 6 MONTHS AGO. Qualifiers: Hepatic cirrhosis type: unspecified hepatic cirrhosis Ascites presence: with ascites Qualified Code(s): K74.60 - Unspecified cirrhosis of liver; R18.8 - Other ascites (3) Cachexia Current Visit: Yes Status: Chronic Plan: PART OF CIRRHOSIS. (4) CHF (congestive heart failure) Current Visit: Yes Status: Acute Plan: I DON'T THINK THIS CHF PER SAY. HIS PULMONARY INFILTERATES ARE RELATED TO LOW ALBUMIN. HE DOES NOT HAVE ANY PNEUMONIA SYMPTOMS. PROGNOSIS IS POOR. (5) Dysphagia Current Visit: Yes Status: Acute Plan: PER HE HAS HAD EGD AND ALSO SEEN DR. YOUNG. EGD WAS IN [facility] JUST TWO MONTHS AGO. THERE WAS NO CANCER PER HER. SPEECH THERAPY IS CONSULTED. Qualifiers: Dysphagia type: esophageal phase Qualified Code(s): R13.10 - Dysphagia, unspecified - Advance Directives Does patient have a Living Will: Yes Does patient have a Durable POA for Healthcare: Yes
[2019-04-05] MEDS ORDERED: NACHLORIDE 0.45% 1,000 ML IV SCH (20:00)
[2019-04-05 20:34] LABS: Protime INR 1.77
[2019-04-05 20:47] LABS: Albumin 1.6 g/dL (3.4-5.0); Bilirubin Total 1.6 mg/dL (0.2-1.0); Protein, Total 6.9 g/dL (6.4-8.2); Thyroid Stimulating Hormone 1.2 uIU/mL (0.360-3.740)
[2019-04-05] MEDS ORDERED: IPRATROPIUM BROMIDE NS SCH (21:00)
[2019-04-05] MEDS ORDERED: CEFTRIAXONE 1 GM/10 ML SYR IVP SCH ×2 (21:00)
[2019-04-05] MEDS ORDERED: CEFTRIAXONE 1000 MG/VIAL IVP SCH (21:00)
[2019-04-05] MEDS ORDERED: CEFTRIAXONE/SWI 1gm 1 GM/10 ML SYR IV SCH (21:00)
[2019-04-05] MEDS ORDERED: METOPROLOL TARTRATE 5 MG/5 ML INJ IV PRN (22:39)
[2019-04-05 23:03] LABS: Urine Protein/Creatinine Ratio 0.88 ratio (<0.15)
[2019-04-06] MEDS ORDERED: LORazepam 2 MG/ML VIAL IV PRN (00:43)
[2019-04-06] MEDS: ALBUTEROL 2.5 MG/3 ML NEB SOL NEB SCH (02:00)
[2019-04-06 06:08] VITALS: BP 89/36; TEMP 97.6
[2019-04-06 06:16] LABS: Magnesium 2.2 mg/dL (1.8-2.4); Potassium 4.8 mmol/L (3.5-5.1)
--- NOTE | 2019-04-06 06:25 | P.DS ---
Admission Date: 04/04/19 Discharge Date: 04/06/19 Discharge Condition: Reason for Admission: WEAKNESS, FALLING FOR LAST TWO MONTHS. 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 I HAVE NEVER SEEN HIM BEFORE HIS IS MY PATIENT AND REQUESTED FOR ME TO SEE HIM WHILE HERE AND IF HE GETS DISCHARGED THEN IN OFFICE. ABOUT SIX YEARS AGO HE ONLY HAD FATTY LIVER. LATER HE WAS FOUND TO HAVE ESOPHAGEAL CANCER FOR WHICH [facility] DID CHEMO AND RADIATION THERAPY AND NOW IT IS NOT DETECTABLE. 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 NOW SINCE KNEE SURGERY HIS CIRRHOSIS ACTED UP PER . HE HAS LOST 60 LBS IN LAST 6 MONTHS, HE HAS HAD RECURRENT ASICTES AND TAPS DONE FOR IT. HE HAS HAD ESOPHAGEAL VARICES BANDED A FEW TIMES. LAST TIME HE SAW DR GUILLEN AT [facility] WHO IS CIRRHOSIS MD WAS ABOUT TWO MONTHS AGO. I CALLED AND TALKED TO HIM. HE SAID THAT IT IS DIFFICULT TO CONTROL HIS FLUID IN ABDOMEN. HE HAS HIM ON TWO DIURETICS. NOW MR. LUNA IS ADMITTED FOR FALLS, NEW RENAL FAILURES AND LUNG INFILTRATES. HE HAS NO FEVER OR COUGH. Hospital Course: MR. LUNA HISTORY IS DETAILED IN HP NOTE. I DID NOT THINK HE WILL SURVIVE. I HAD TOLD ABOUT THAT YESTERDAY. HE EXPECTED FROM MULTISYTEM FAILURE. HE AT 5:30 AM. DAUGHTER THANKED ME FOR COMING AT LUNCH TIME TO SEE HIM YESTERDAY [facility] I HAVE NEVER SEEN HIM BEFORE. Vital Signs/Physical Exam: Temp Pulse Resp BP Pulse Ox 97.6 F 122 H 24 H 89/36 L 93 04/06/19 04:00 04/06/19 05:00 04/06/19 05:00 04/06/19 05:00 04/06/19 05:00 Laboratory Data at Discharge: WBC 10.5 K/uL (4.3-10.9) D 04/05/19 05:57 Hgb 12.1 g/dL (13.6-17.9) L 04/05/19 05:57 Hct 34.8 % (39.6-49.0) L 04/05/19 05:57 Plt Count 130 K/uL (152-406) L D 04/05/19 05:57 PT 20.4 SECONDS (9.5-12.5) H 04/05/19 20:00 INR 1.77 04/05/19 20:00 Sodium 130 mmol/L (136-145) L 04/06/19 05:07 Potassium 4.8 mmol/L (3.5-5.1) 04/06/19 05:07 BUN 64 mg/dL (7-18) H 04/06/19 05:07 Creatinine 2.55 mg/dL (0.55-1.3) H 04/06/19 05:07 Glucose 103 mg/dL (74-106) 04/06/19 05:07 Magnesium 2.2 mg/dL (1.8-2.4) 04/06/19 05:07 Total Bilirubin 1.6 mg/dL (0.2-1.0) H 04/05/19 20:00 AST 162 U/L (15-37) H 04/05/19 20:00 ALT 39 U/L (12-78) 04/05/19 20:00 Alkaline Phosphatase 174 U/L (45-117) H 04/05/19 20:00 Home Medications: Biotin [Nail-Ex] 2,500 mcg PO DAILY 04/04/19 Cyanocobalamin (Vitamin B-12) [Vitamin B-12] 5,000 mcg PO DAILY 04/04/19 Furosemide [Lasix] 20 mg PO DAILY 04/04/19 Ipratropium [place] 15 ml NS QID 04/04/19 Pantoprazole Sodium 20 mg PO DAILY 04/04/19 Spironolactone 25 mg PO DAILY 04/04/19
[2019-04-06 06:47] LABS: Absolute Lymphocytes (CBC) 0.2 K/uL (0.7-4.9); Hematocrit 38.7 % (39.6-49.0); Lymphocytes % 2.2 % (15.3-44.8); MPV 8.5 fL (7.6-11.3); RBC Red Blood Cell Count 3.77 M/uL (4.33-5.43)
--- NOTE | 2019-04-06 08:13 | ECHO ---
HEIGHT: 5 ft 6 in WEIGHT: 126 lb 8 oz DATE OF STUDY: 04/06/[address]: Juan Evangelista NP 2-DIMENSIONAL: YES M.MODE: YES DOPPLER: YES COLOR FLOW: YES TDS: YES PORTABLE: DEFINITY: BUBBLE STUDY: DIAGNOSIS: PULMONARY EDEMA CARDIAC HISTORY: CATHERIZATION: NO SURGERY: NO PROSTHETIC VALVE: NO PACEMAKER: NO MEASUREMENTS (cm) DIASTOLIC (NORMALS) SYSTOLIC (NORMALS) IVSd 1.4 (0.6-1.2) LA Diam (1.9-4.0) LVEF 88% LVIDd 2.8 (3.5-5.7) LVIDs 1.2 (2.0-3.5) %FS 56% LVPWd 0.9 (0.6-1.2) Ao Diam 2.5 (2.0-3.7) 2 DIMENSIONAL ASSESSMENT: RIGHT ATRIUM: NORMAL LEFT ATRIUM: NORMAL RIGHT VENTRICLE: NORMAL LEFT VENTRICLE: LEFT VENTRICULAR HYPERTROPHY, SEPTAL CONCENTRIC ASYMMERTRIC TRICUSPID VALVE: NORMAL MITRAL VALVE: NORMAL PULMONIC VALVE: NORMAL AORTIC VALVE: NORMAL PERICARDIAL EFFUSION: NONE AORTIC ROOT: NORMAL LEFT VENTRICULAR WALL MOTION: HYPERDYNAMIC DOPPLER/COLOR FLOW: TRACE AORTIC REGURGITATION. IMPAIRED LEFT VENTRICULAR RELAXATION. COMMENTS: HYPERDYNAMIC LEFT VENTRICULAR EJECTION FRACTION. LEFT VENTRICULAR HYPERTROPHY WITH ASYMMERTIC SEPTAL HYPERTROPHY. NORMAL LEFT VENTRICULAR OUTFLOW TRACT GRADIENT. IMPARED LEFT VENTRICULAR RELAXATION. TECHNOLOGIST: SHAYNE PAULINO
[2019-04-06] MEDS ORDERED: PANTOPRAZOLE 40MG TABLET PO SCH (09:00)
[2019-04-06 12:43] LABS: Blood Morphology Comment NOTED (NOT SEEN); Burr Cells 2+; Macrocytosis 2+; Platelet Estimate DECR; Urine White Blood Cell Casts OK
[2019-04-06] MEDS ORDERED: ENSURE ENLIVE 237 ML CAN PO SCH (21:00)
== END 2019-04-06 05:30 | disposition expired | DRG 682 ==
LOC: ER 10:35 → ERHOLD 15:33 → 4TH 16:45 → 3RD-ICU 04-05 22:00
PROVIDERS: ADMIT Internal Medicine; ATTEND Internal Medicine
DX: N17.9 Acute kidney failure, unspecified (principal); I50.33 Acute on chronic diastolic (congestive) heart failure; R18.8 Other ascites; R64 Cachexia; M62.82 Rhabdomyolysis; E46 Unspecified protein-calorie malnutrition; R79.89 Other specified abnormal findings of blood chemistry; I11.0 Hypertensive heart disease with heart failure; K74.60 Unspecified cirrhosis of liver; C61 Malignant neoplasm of prostate; R13.19 Other dysphagia; Z96.652 Presence of left artificial knee joint; Z68.20 Body mass index [BMI] 20.0-20.9, adult; Z85.01 Personal history of malignant neoplasm of esophagus
CPT/HCPCS: 36415; 71045; 80048; 80076; 81003; 81015; 82550; 82570; 83735; 83880; 83970; 84156; 84403; 84443; 84484; 85025; 85610; 87086; 87088; 92610; 93005; 93306; 93925; 93970; 94640; 96361; 96374; 99285; J0696; J1940; J7030